=== PATIENT | female | born 1985 | race Caucasian/White ===

== ENCOUNTER → 2017-10-25 11:45 | Outpatient (CLI) | payer BC, SELFPAY | PROVIDERS: PCP Emergency Medicine; Visit Provider Internal Medicine Cardiovascular Disease | DX: G47.30 Sleep apnea, unspecified (principal); G47.10 Hypersomnia, unspecified; R06.83 Snoring | CPT/HCPCS: 95806 ==

== ENCOUNTER 2021-04-22 19:44 | Emergency (ER) | payer BC, SELFPAY ==
[2021-04-22 19:45] VITALS: BP 108/52; PULSE 71; RESP 18; TEMP 37.1; O2SAT 98; BMI 37.1
[2021-04-22 20:08] VITALS: BP 108/52; PULSE 71; RESP 18; TEMP 37.1; O2SAT 98
--- NOTE | 2021-04-22 20:21 | HMH.EDUTC ---
[facility] [place] Clinical Impression: Exposure to COVID-19 virus Disposition: Home, Self-Care Condition on Discharge: Good Instructions: DI for COVID-19 (Suspected or Confirmed ) Additional Instructions: covid swab was sent to lab, call tomorrow for results. self isolate until test results are known to be negative Referrals: Paige Persaud APRN [Primary Care Provider] - Time of Disposition: 20:25 Medical Decision Making - [place] Inquiry Pt receiving controlled substance: No Vital Signs: 04/22/21 19:45 04/22/21 20:08 Temperature 98.8 F 98.8 F Temperature Source Oral Pulse Rate 71 Pulse Rate [Right Brachial] 71 Respiratory Rate 18 18 Blood Pressure 108/52 L Blood Pressure [Right Arm] 108/52 L Blood Pressure Mean [Right Arm] 70 Blood Pressure Source [Right Arm] Automatic Cuff Blood Pressure Position [Right Arm] Sitting 02 Sat by Pulse Oximetry 98 Oxygen Delivery Method Room Air Orders (Tests/Meds): ORDERS Category Date Time Status Covid-19 Nasal PCR ([facility]) Routine Lab 04/22/21 19:50 Received [facility] [place] HPI - General Chief complaint: Urgent [facility] Stated complaint: covid test Time Seen by Provider: 04/22/21 20:22 Mode of Arrival: Ambulatory Source of Information: Patient Limitations: No Limitations Description of Symptoms (Recalled from Triage Doc. by RN): COVID TEST D/T EXPOSURE. C/O SORE THROAT AND HEADACHE SINCE YESTERDAY HEENT Symptoms (Recalled from RN notes): Yes Resp Symptoms (Recalled from RN notes): No Skin Symptoms (Recalled from RN notes): No MS Symptoms (Recalled from RN notes): No Functional Status (Recalled from RN notes): WNL - History of Present Illness Provider Complaint: 35 yr old female presnets for covid test. pt states she had a family member positive and work wanted her to have covid test. pt states se had a espinal and sore throat yesterday but it is gone today - Related Data Home Medications Medication Instructions Recorded Confirmed buprenorphine 8 mg-naloxone 2 mg 1 film SUBLINGUAL BID each 06/03/17 04/02/19 sublingual film Previous Rx's Medication Instructions Recorded metoprolol succinate 50 mg 50 mg PO DAILY #30 tab 09/11/17 tablet,extended release 24 hr Allergies Allergy/AdvReac Type Severity Reaction Status Date / Time No Known Allergies Allergy Verified 04/02/19 11:56 - Worker's Comp Is this a Worker's Comp case?: No [facility] History - Hepatitis A Screen Drug use history?: No High risk sexual behaviors?: No History of sexually transmitted infection?: No Currently employed?: No Childcare worker?: No Do you have indoor plumbing?: Yes Do you have electricity?: Yes Attestation statement:: This patient has been screened for Hepatitis A risk factors. I have reviewed the patient's past medical history: Yes Medical History: Reports:: Hypertension, Palpitations Denies:: Cancer, Diabetes Mellitus Type 1, Diabetes Mellitus Type 2, MRSA Other Surgeries: Yes: , Other Amputation: No Fractures: No - Social History Smoking Status: Current every day smoker Tobacco Type: cigarettes # Packs/Day (cigarettes): 1 Alcohol Intake: never Alcohol Intake Frequency:: other Substance Use Type: former substance user, heroin, opiates Occupational Status: employed Family Hx:: Coronary Artery Disease, Hypertension ROS Obtained: Yes Systems reviewed as appropriate & no additional complaints - Constitutional Constitutional: Reports system reviewed and no additional complaints, except as docu, Denies fever(s) - Eyes Eyes: Reports system reviewed and no additional complaints, except as docu, Denies dry eyes - ENT Ears, Nose, Mouth, and Throat: Reports system reviewed and no additional complaints, except as docu, Denies headache(s), Denies sore throat - Cardiovascular Cardiovascular: Reports system reviewed and no additional complaints, except as docu, Denies chest pain - Respiratory Respiratory: Reports system reviewe
== END 2021-04-22 20:27 | disposition home or self-care (01) ==
PROVIDERS: Emergency Provider Nurse Practitioner Family; PCP Nurse Practitioner Family
DX: R07.0 Pain in throat (principal); Z20.822 Contact with and (suspected) exposure to COVID-19
CPT/HCPCS: 99202; C9803; G0463; U0003; U0005

== ENCOUNTER → 2021-05-04 16:17 | Outpatient (CLI) | payer BC, SELFPAY ==
[2021-05-04 16:56] LABS: Basophils % 0.3 % (0.1-2.0); Eosinophils # 0.1 K/mm3 (0.0-0.4); Eosinophils % 1.4 % (0.1-12.0); Hematocrit 43.7 % (37.0-47.0); Hemoglobin 15.1 g/dL (12.2-16.2); Lymphocytes # 2.2 K/mm3 (0.7-4.5); Lymphocytes % 28.6 % (10-50); Mean Corpuscular HGB Conc 34.4 g/dL (31.8-35.4); Mean Corpuscular Hemoglobin 30.9 pg (27.0-31.2); Mean Corpuscular Volume 89.8 fl (81-99); Mean Platelet Volume 8.1 fl (7.4-10.4); Monocytes # 0.3 K/mm3 (0.1-1.0); Monocytes % 4.2 % (1.7-9.3); Neutrophils % 65.5 % (37.0-80.0); Platelet Count 284 K/mm3 (142-424); Red Blood Count 4.87 M/mm3 (4.20-5.40); Red Cell Distribution Width 11.9 % (11.5-17.5); White Blood Count 7.7 K/mm3 (4.8-10.8)
[2021-05-04 17:28] LABS: Alanine Aminotransferase 23 U/L (12-78); Albumin Level 4.6 g/dl (3.5-5.0); Albumin/Globulin Ratio 1.8 (1.1-1.8); Alkaline Phosphatase 71 U/L (38-126); Anion Gap 12.9 mEq/L (5-15); Aspartate Amino Transferase 35 U/L (14-36); Bilirubin,Total 0.7 mg/dl (0.2-1.3); Blood Urea Nitrogen 12 mg/dl (7-17); Calcium 8.9 mg/dl (8.4-10.2); Carbon Dioxide 24 mmol/L (22.0-30.0); Chloride 106 mmol/L (98-107); Estimated Glomerular Filt Rate 112 ml/min (>60); GFR (African American) 135 ML/MIN (>60); Globulin 2.5 g/dL (1.3-3.2); Glucose 103 mg/dl (74-100); Potassium 3.9 mmoL/L (3.5-5.1); Sodium 139 mmol/L (136-145); Total Protein,Serum 7.1 g/dl (6.3-8.2)
== END ==
PROVIDERS: Visit Provider Nurse Practitioner Family
DX: R23.3 Spontaneous ecchymoses (principal)
CPT/HCPCS: 36415; 80053; 85025

== ENCOUNTER → 2021-05-17 10:41 | Outpatient (CLI) | payer BC, SELFPAY ==
[2021-05-17 11:01] LABS: Urine Pregnancy, HCG Qual. Negative (Negative)
== END ==
PROVIDERS: Visit Provider Surgery
DX: Z01.812 Encounter for preprocedural laboratory examination (principal); Z11.52 Encounter for screening for COVID-19; L72.9 Follicular cyst of the skin and subcutaneous tissue, unspecified
CPT/HCPCS: 81025; C9803; U0003; U0005

== ENCOUNTER 2021-05-18 08:32 | Day surgery (SDC) | payer BC, SELFPAY ==
[2021-05-18 08:46] VITALS: BP 121/76; PULSE 88; RESP 18; TEMP 37; O2SAT 100; BMI 37.1
--- NOTE | 2021-05-18 09:34 | P.PN_ITS ---
[facility] Anesthesia Checklist - Patient Identification Patient Identification: Arm Band, Verbal (Name & ) - Structural Data Admitted From: Home Planned Operative Procedure/s: Excision of posterior scalp lesion Consent for Planned Operative Procedure(s) Verified: Yes Verified Documents: Surgical Consent - NPO Status Verified Time NPO: 20:00 - Additional verifications Anesthesia Reactions: No Hx Blood Transfusions: No Blood Transfusion Reaction: No - Anesthesia Plan Anesthesia Risk discussed: Yes ASA Class: II Anesthesia Type: MAC [facility] History I have reviewed the patient's past medical history: Yes Medical History: Reports:: Hypertension, Palpitations Denies:: Cancer, Diabetes Mellitus Type 1, Diabetes Mellitus Type 2, Internal Pacemaker, MRSA, Seizures *Have you ever received a pneumonia vaccine?: No *Have you received a flu vaccine this season?: Yes Other Medical History: Denies: Blood Transfusion Reaction Anesthesia experience/problems:: none Other Surgeries: Yes: , Other. No: Pacemaker Amputation: No Fractures: No - *Social History Last grade of school completed: Advanced degree Smoking Status: Current every day smoker Tobacco Type: cigarettes # Packs/Day (cigarettes): 1 Alcohol Intake: never Alcohol Intake Frequency:: other Substance Use Type: sedatives Last Used Substance: unknown *Occupational Status:: employed Housing: house *Travel in the last 8 weeks: None Family Hx:: Hypertension
--- NOTE | 2021-05-18 09:37 | HMH.OPNOTE ---
Date of procedure: 05/18/21 Pre-op Diagnosis:: 1.5 cm posterior scalp cyst Post-op Diagnosis:: Same Procedure performed:: Excision of 1.5 cm posterior scalp cyst Surgeon:: Kevin Velazco MD Anesthesia: LMA Estimated blood loss (mL): 10 Operative findings:: Cyst capsule excised Operative note:: After informed consent was obtained the patient was taken to the operating room and placed in the supine position. General anesthesia with laryngeal mask airway was achieved. She was transferred to the right lateral decubitus position. Her posterior scalp was prepped and draped in a sterile fashion. After infiltration local anesthetic an incision overlying the cyst was made. The deep subcutaneous tissue was dissected with electrocautery. The cyst cavity was carefully elevated and excised with a combination of blunt dissection and electrocautery. Electrocautery was then utilized to achieve hemostasis after the cyst was excised in toto. The small linear wound was packed open with dry gauze and a pressure dressing was applied. The patient was then transferred to recovery in stable condition. Condition: stable Disposition: PACU Specimens:: Scalp cyst Complications:: No immediate
[2021-05-18 09:45] VITALS: BP 107/46; PULSE 88; RESP 16; TEMP 36.8; O2SAT 98
[2021-05-18 10:00] VITALS: BP 103/68; PULSE 70; RESP 16; O2SAT 99
[2021-05-18 10:15] VITALS: BP 110/62; PULSE 67; RESP 16; O2SAT 99
== END 2021-05-18 10:15 | disposition home or self-care (01) ==
LOC: OR 08:33
PROVIDERS: PCP Nurse Practitioner Family; Visit Provider Surgery
PROC: (CPT 11422; principal; 2021-05-18 10:00)
DX: L72.12 Trichodermal cyst (principal); I10 Essential (primary) hypertension; R00.2 Palpitations; Z87.891 Personal history of nicotine dependence; Z82.49 Family history of ischemic heart disease and other diseases of the circulatory system
CPT/HCPCS: 11422; 96374; J2405

== ENCOUNTER → 2022-02-19 13:31 | Outpatient (CLI) | payer BC, SELFPAY ==
--- NOTE | 2022-02-19 13:34 | CA_ITS ---
FINAL REPORT TECHNIQUE: Color Doppler, duplex Doppler and compression sonography of the left lower extremity deep venous systems was performed. CLINICAL HISTORY: .lt anterior cooper tenderness, 8 weeks , varicosities, [employer] worker. FINDINGS: There is no evidence of deep venous thrombosis from the level of the groin to the calf. The veins are patent and compressible. IMPRESSION: No evidence of deep venous thrombosis left lower extremity. Reviewed, Interpreted and Dictated by Wale Rios III, MD Transcribed by Ke Stearns Authenticated and . [facility]
== END ==
PROVIDERS: PCP Nurse Practitioner Family; Visit Provider Nurse Practitioner Family
DX: R22.42 Localized swelling, mass and lump, left lower limb (principal)
CPT/HCPCS: 93971

== ENCOUNTER → 2022-02-26 15:32 | Outpatient (CLI) | payer BC, SELFPAY ==
[2022-02-26 16:31] LABS: Basophils % 0.5 % (0.1-2.0); Eosinophils # 0.1 K/mm3 (0.0-0.4); Eosinophils % 1.9 % (0.1-12.0); Hematocrit 37.5 % (37.0-47.0); Lymphocytes # 1.3 K/mm3 (0.7-4.5); Lymphocytes % 24.1 % (10-50); Mean Corpuscular HGB Conc 34.6 g/dL (31.8-35.4); Mean Corpuscular Hemoglobin 31.1 pg (27.0-31.2); Mean Corpuscular Volume 89.8 fl (81-99); Monocytes # 0.3 K/mm3 (0.1-1.0); Monocytes % 5.7 % (1.7-9.3); Neutrophils # 3.5 K/mm3 (1.8-7.8); Neutrophils % 67.8 % (37.0-80.0); Platelet Count 211 K/mm3 (142-424); Red Blood Count 4.18 M/mm3 (4.20-5.40); Red Cell Distribution Width 12.4 % (11.5-17.5); White Blood Count 5.2 K/mm3 (4.8-10.8)
[2022-02-28 12:38] LABS: Rapid Plasma Reagin Ab Titer Non Reactive (NonRea<1:1)
[2022-03-10 23:24] LABS: HIV Screen 4th Generation wRfx NON REACTIVE; Hepatitis B Surface Antigen NON REACTIVE; Hepatitis C Antibody <0.1; Rubella Antibodies, IgG 1.2
== END ==
PROVIDERS: PCP Nurse Practitioner Family; Visit Provider Nurse Practitioner Obstetrics & Gynecology
DX: Z34.90 Encounter for supervision of normal pregnancy, unspecified, unspecified trimester (principal)
CPT/HCPCS: 36415; 85025; 86592; 86703; 86762; 86850; 87340; 87380; G0432

== ENCOUNTER → 2022-03-12 09:49 | Outpatient (CLI) | payer BC, SELFPAY ==
--- NOTE | 2022-03-12 09:49 | US_ITS ---
FINAL REPORT CLINICAL HISTORY: for dates, patient did not know her lmp FINDINGS: Sonographic images of the pelvis were obtained. There is a gestational sac in the uterus. The crown-rump length measures 68 mm corresponding to 13 week 1 day gestation. Heart rate is detected at 160 beats per minute. There is a 3.7 cm probable corpus luteum cyst in the right ovary. IMPRESSION: Single intrauterine with 13 week 1 day gestation. Reviewed, Interpreted and Dictated by Wale Rios III, MD Transcribed by Lien Mallory Authenticated and . [facility]
== END ==
PROVIDERS: PCP Nurse Practitioner Family; Visit Provider Nurse Practitioner Obstetrics & Gynecology
DX: Z34.90 Encounter for supervision of normal pregnancy, unspecified, unspecified trimester (principal)
CPT/HCPCS: 76801

== ENCOUNTER → 2022-04-30 12:48 | Outpatient (CLI) | payer BC, SELFPAY ==
--- NOTE | 2022-04-30 12:49 | US_ITS ---
FINAL REPORT CLINICAL HISTORY: 20 week anatomy scan FINDINGS: There is a single live intrauterine gestation. Presentation is cephalic. The cervix is closed and measures 2.8 cm. Placenta is posterior, grade 1. The placenta slightly less than 2 cm from the internal os consistent with a low lying placenta. movement is noted. Cardiac activity is measured at 147 beats per minute. No gross anatomic anomaly is identified. AMNIOTIC FLUID: Appropriate amount. MEASUREMENTS: ULTRASOUND AGE: 19 weeks 6 days. GESTATION AGE: 20 weeks 2 days. ESTIMATED WEIGHT: 313 g GROWTH PERCENTILE: 21% LMP percentile BPD: 4.6 cm correspond with 20 weeks 0 days. OFD: 6.1 cm corresponding with 20 weeks 5 days. HC: 16.9 cm corresponding with 19 weeks 5 days. AC: 14.8 cm corresponding to 20 weeks 1 days. FL: 3.1 cm corresponding with 19 weeks 4 days. CEREBELLUM: 1.9 cm corresponding to 20 weeks 0 days. HUMERUS: 3.0 cm corresponding with 20 weeks 0 days. HC/AC: 1.15 CI: 76% FL/BPD: 67% FL/AC: 21% IMPRESSION: Single living IUP with an ultrasound age of 19 weeks 6 days. No gross anatomic anomalies noted. Findings are consistent with a low lying placenta, attention should be paid during follow-up. Reviewed, Interpreted and Dictated by Marjorie Gasca MD Transcribed by Silvana Ledezma Authenticated and . [facility]
== END ==
PROVIDERS: PCP Nurse Practitioner Family; Visit Provider Nurse Practitioner Obstetrics & Gynecology
DX: Z34.90 Encounter for supervision of normal pregnancy, unspecified, unspecified trimester (principal); Z3A.20 20 weeks gestation of pregnancy
CPT/HCPCS: 76811

== ENCOUNTER 2022-06-21 12:40 | Outpatient (CLI) | payer BC, SELFPAY ==
[2022-06-21 13:30] LABS: Basophils % 0.2 % (0.1-2.0); Eosinophils # 0.1 K/mm3 (0.0-0.4); Eosinophils % 1.5 % (0.1-12.0); Hematocrit 39.4 % (37.0-47.0); Hemoglobin 12.6 g/dL (12.2-16.2); Lymphocytes # 1.6 K/mm3 (0.7-4.5); Lymphocytes % 19.8 % (10-50); Mean Corpuscular HGB Conc 31.9 g/dL (31.8-35.4); Mean Corpuscular Hemoglobin 29.6 pg (27.0-31.2); Mean Corpuscular Volume 92.7 fl (81-99); Mean Platelet Volume 7.5 fl (7.4-10.4); Monocytes # 0.3 K/mm3 (0.1-1.0); Monocytes % 4.2 % (1.7-9.3); Neutrophils # 5.8 K/mm3 (1.8-7.8); Neutrophils % 74.3 % (37.0-80.0); Platelet Count 218 K/mm3 (142-424); Red Blood Count 4.25 M/mm3 (4.20-5.40); Red Cell Distribution Width 13.7 % (11.5-17.5); White Blood Count 7.8 K/mm3 (4.8-10.8)
[2022-06-21 14:40] LABS: Glucose,Fasting 86 mg/dl (74-100)
[2022-06-21 14:45] VITALS: BP 127/83; PULSE 92; RESP 18; O2SAT 98
[2022-06-21 15:58] LABS: Glucose 1 Hour 90 mg/dL (74-100)
== END 2022-06-21 15:00 | disposition home or self-care (01) ==
PROVIDERS: PCP Nurse Practitioner Family; Visit Provider Nurse Practitioner Obstetrics & Gynecology
DX: Z34.90 Encounter for supervision of normal pregnancy, unspecified, unspecified trimester (principal)
CPT/HCPCS: 36415; 82951; 85025; 96372; J2790

== ENCOUNTER → 2022-06-28 12:42 | Outpatient (CLI) | payer BC, SELFPAY ==
--- NOTE | 2022-06-28 12:42 | US_ITS ---
FINAL REPORT CLINICAL HISTORY: low lying placenta FINDINGS: There is a single live intrauterine gestation. Presentation is cephalic. The cervix is closed and measures 3.7 cm in length. Placenta is posterior, grade 1. movement is noted. heart rate is 142 beats per minute. Three-vessel cord with satisfactory umbilical cord insertion. Four-chamber heart is noted. brain and ventricles are unremarkable. Chest and diaphragm are unremarkable. ABDOMEN: Both kidneys are unremarkable. Stomach is unremarkable. SPINE: No anomalies identified. Both arms and legs noted. AMNIOTIC FLUID: Appropriate amount. MEASUREMENTS: ULTRASOUND AGE: 28 weeks 4 days. GESTATION AGE: 28 weeks 5 days. ESTIMATED WEIGHT: 1207 g GROWTH PERCENTILE: 24 BPD: 7.11 consistent with 28 weeks 4 days. OFD: 9.42 cm consistent with 28 weeks 6 days. HC: 26.2 cm consistent with 28 weeks 4 days. AC: 24 0.05 cm corresponding to 28 weeks 3 days. FL: 5.30 cm corresponding to 28 weeks 2 days. HC/AC: 1.09 CI: 75 % FL/BPD: 75% FL/AC: 22% IMPRESSION: Single living IUP with an ultrasound age of 28 weeks 4 days. No anomalies noted. Reviewed, Interpreted and Dictated by Wale Rios III, MD Transcribed by Cande Gaytan Authenticated and [facility][1]
== END ==
PROVIDERS: PCP Nurse Practitioner Family; Visit Provider Obstetrics & Gynecology
DX: O44.40 Low lying placenta NOS or without hemorrhage, unspecified trimester (principal); Z3A.28 28 weeks gestation of pregnancy
CPT/HCPCS: 76816

== ENCOUNTER → 2022-08-23 16:35 | Outpatient (CLI) | payer BC, SELFPAY | PROVIDERS: PCP Nurse Practitioner Family; Visit Provider Nurse Practitioner Obstetrics & Gynecology | DX: Z34.93 Encounter for supervision of normal pregnancy, unspecified, third trimester (principal); Z3A.36 36 weeks gestation of pregnancy | CPT/HCPCS: 86403 ==

== ENCOUNTER → 2022-08-28 11:56 | Outpatient (CLI) | payer BC, SELFPAY ==
[2022-08-28 12:44] LABS: Basophils % 0.1 % (0.1-2.0); Eosinophils # 0.1 K/mm3 (0.0-0.4); Eosinophils % 0.6 % (0.1-12.0); Hematocrit 39.8 % (37.0-47.0); Hemoglobin 13.3 g/dL (12.2-16.2); Lymphocytes # 1.3 K/mm3 (0.7-4.5); Lymphocytes % 16.7 % (10-50); Mean Corpuscular HGB Conc 33.5 g/dL (31.8-35.4); Mean Corpuscular Hemoglobin 30.6 pg (27.0-31.2); Mean Corpuscular Volume 91.5 fl (81-99); Mean Platelet Volume 8.9 fl (7.4-10.4); Monocytes # 0.3 K/mm3 (0.1-1.0); Monocytes % 3.9 % (1.7-9.3); Neutrophils % 78.7 % (37.0-80.0); Platelet Count 197 K/mm3 (142-424); Red Blood Count 4.35 M/mm3 (4.20-5.40); Red Cell Distribution Width 13.4 % (11.5-17.5); White Blood Count 7.6 K/mm3 (4.8-10.8)
[2022-08-28 12:56] LABS: D-Dimer 1.28 ug/mL (0.0-0.5)
[2022-08-28 13:03] LABS: Activated Partial Thrombo Time 26.8 seconds (22.8-30.6); Fibrinogen 464 mg/dL (229.9-363.5); INR 0.89 (0.9-1.1); Prothrombin Time 9.7 seconds (10.1-12.5)
[2022-08-28 13:10] LABS: Alanine Aminotransferase 18 U/L (12-78); Anion Gap 14.1 mEq/L (5-15); Aspartate Amino Transferase 25 U/L (14-36); Blood Urea Nitrogen 5 mg/dl (7-17); Calcium 8.4 mg/dl (8.4-10.2); Carbon Dioxide 22 mmol/L (22.0-30.0); Chloride 105 mmol/L (98-107); Estimated Glomerular Filt Rate 178 ml/min (>60); GFR (African American) 215 ML/MIN (>60); Glucose 88 mg/dl (74-100); Potassium 4.1 mmoL/L (3.5-5.1); Sodium 137 mmol/L (136-145); Uric Acid 3.7 mg/dl (2.5-6.2)
[2022-08-28 15:10] LABS: Collection Time,Urine 22 hours
[2022-08-28 15:11] LABS: Total Volume,Urine 1750 mL (600-1600)
[2022-08-28 15:17] LABS: Patient Weight,Urine 250 lbs
[2022-08-28 16:25] LABS: Creatinine 24 Hour,Urine 1295 mg/24hr (630-2500); Creatinine,Urine Random 74 mg/dL (Not Estab.); Total Protein 24 Hour,Urine 245 mg/24 hr (40-90)
== END ==
PROVIDERS: PCP Nurse Practitioner Family; Visit Provider Nurse Practitioner Obstetrics & Gynecology
DX: I10 Essential (primary) hypertension (principal)
CPT/HCPCS: 80048; 82575; 84155; 84450; 84460; 84550; 85025; 85378; 85384; 85610; 85730

== ENCOUNTER 2022-09-10 05:03 | Inpatient (IN) | payer BC, SELFPAY ==
[2022-09-10] VITALS (9 sets, daily range): BP systolic 118–137; BP diastolic 77–88; PULSE 82–91; RESP 12–18; TEMP 36.2–37.3; O2SAT 96–98; BMI 40.0
[2022-09-10 06:57] LABS: Coronavirus 19, PCR Not Detected (NotDetected); Influenza A, PCR Not Detected (NotDetected); Influenza B, PCR Not Detected (NotDetected)
--- NOTE | 2022-09-10 07:05 | P.PN_ITS ---
[facility] Disclaimer: The information contained in this section may have been updated after the patient was seen, as this information can be updated by other users. 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, antepartum Surgical History History of section Hx of cholecystectomy Social History Smoking Status: Former smoker alcohol intake: never substance use type: former substance user and sedatives current occupational status: employed Travel in the last 8 weeks: None housing: house current occupation: [employer] current occupational exposures/hazards: Yes caffeine: Yes [facility] Anesthesia Checklist Patient Identification Patient Identification: Arm Band and Verbal (Name & ) Structural Data Admitted From: Inpatient Planned Operative Procedure/s: C/S Consent for Planned Operative Procedure(s) Verified: Yes NPO Status Verified Time NPO: 00:00 Chart Verification Results Verified: CBC and BMP Additional verifications Patient : Yes Anesthesia Reactions: No Hx Blood Transfusions: No Blood Transfusion Reaction: No Airway Assessment C-Spine Mobility Assessed: Yes TMJ Mobility Assessed: Yes Dentition: Good Dentition Neurological Assessment Level of Consciousness: Awake Hx Seizures: No Numbness or tingling in extremities: Yes Anesthesia Plan Anesthesia Risk discussed: Yes Anesthesia Plan: Verified ASA Class: III Anesthesia Type: Spinal
[2022-09-10 07:18] LABS: Chloride 107 mmol/L (98-107); Sodium 136 mmol/L (136-145)
[2022-09-10 07:19] LABS: Potassium 4.6 mmoL/L (3.5-5.1)
[2022-09-10 07:21] LABS: Alanine Aminotransferase 20 U/L (12-78); Albumin Level 3.5 g/dl (3.5-5.0); Alkaline Phosphatase 91 U/L (38-126); Aspartate Amino Transferase 58 U/L (14-36); Bilirubin,Total 1.3 mg/dl (0.2-1.3); Blood Urea Nitrogen 9 mg/dl (7-17); Creatinine Clearance Estimated 335 mL/min (50-200); Estimated Glomerular Filt Rate 178 ml/min (>60); GFR (African American) 215 ML/MIN (>60)
[2022-09-10 07:22] LABS: Albumin/Globulin Ratio 1.3 (1.1-1.8); Anion Gap 13.6 mEq/L (5-15); Calcium 8.1 mg/dl (8.4-10.2); Carbon Dioxide 20 mmol/L (22.0-30.0); Globulin 2.8 g/dL (1.3-3.2); Glucose 85 mg/dl (74-100); Total Protein,Serum 6.3 g/dl (6.3-8.2)
--- NOTE | 2022-09-10 07:38 | HMH.PHAINT1 ---
Pharmacy Intervention Comments: MEDICATION RECONCILIATION COMPLETED ON PATIENT USING EXTERNAL FILL HISTORY FROM PHARMACY AND NOHEMI REPORT. -LON BRENNAN, AYOD
[2022-09-10 08:16] LABS: Cord Blood PH 7.29 (7.35-7.45)
--- NOTE | 2022-09-10 09:08 | EXP.ANES.I ---
[facility] Anesthesia Record Part I Anesthesia Record I Intake, IV Amount: 1,000 Estimated blood loss (mL): 600 Urine output (mL): 200 Blood Pressure: 134/83 SaO2: 98 Pulse Rate: 84 Respiratory Rate: 13 Temperature: 97.1 F Patient is:: Awake Stable to PACU at:: 09:10
[2022-09-10 09:24] LABS: Basophils % 0.1 % (0.1-2.0); Eosinophils # 0.1 K/mm3 (0.0-0.4); Eosinophils % 1.2 % (0.1-12.0); Hematocrit 40.8 % (37.0-47.0); Hemoglobin 13.2 g/dL (12.2-16.2); Lymphocytes # 1.3 K/mm3 (0.7-4.5); Mean Corpuscular HGB Conc 32.4 g/dL (31.8-35.4); Mean Corpuscular Hemoglobin 29.9 pg (27.0-31.2); Mean Corpuscular Volume 92.2 fl (81-99); Monocytes # 0.3 K/mm3 (0.1-1.0); Monocytes % 2.9 % (1.7-9.3); Neutrophils # 7.6 K/mm3 (1.8-7.8); Neutrophils % 81.9 % (37.0-80.0); Platelet Count 194 K/mm3 (142-424); Red Blood Count 4.43 M/mm3 (4.20-5.40); Red Cell Distribution Width 13.3 % (11.5-17.5); White Blood Count 9.3 K/mm3 (4.8-10.8)
--- NOTE | 2022-09-10 13:23 | EXP.OP.NOTE ---
Date of procedure: 09/10/22 Pre-op Diagnosis:: Term , previous section, desire for sterilization Post-op Diagnosis:: Term , previous section, desire for sterilization, uterine atony. Procedure performed:: Repeat lower segment transverse section and bilateral salpingectomy Surgeon:: Jamir Yoder MD Singeing Torch Operator(s):: Dr. Hu FACTORY LAY OUT ENGINEER:: Kaleigh Moran Anesthesia: spinal Estimated blood loss (mL): 600 Clinical Note:: She is a 37-year-old 2 para 1 at 39 weeks gestational age. She has had a previous section as result of that was offered repeat lower segment transverse section at term. She also requested a bilateral salpingectomy. Operative findings:: She delivered a liveborn male child at 8:10 AM on the morning of September 10, 2022. The baby had Apgars of 9 at 1 minute and 9 at 5 minutes. pH was 7.29. Ovaries and tubes appeared normal. She did have a somewhat boggy uterus and we elected to perform a B-escalera suture. Operative note:: She was taken to the operating room where spinal anesthesia was found be adequate. She was prepped and draped in normal sterile fashion in the supine position with a leftward tilt. A Mcdowell catheter was in the bladder. A Pfannenstiel skin incision was made with knife then carried through to the underlying layer of fascia with cautery. The fascia was opened in the midline with cautery and extended laterally using Byrd scissors. Sang clamps were applied to the superior aspect of the fascial incision which was tented up and the underlying rectus muscles dissected off using cautery. The [place] clamps were then applied to the inferior aspect of the fascial incision which in a similar fashion was tented up and the underlying rectus muscles dissected off using cautery. The rectus muscles were then in the midline, the peritoneum identified, and entered sharply with Metzenbaum scissors. This incision was then extended superiorly and inferiorly with cautery. We had good visualization of the bladder inferiorly. The bladder peritoneum was then opened in the midline and extended laterally using Metzenbaum scissors. A bladder flap was created digitally. An Santiago retractor was placed within the uterine cavity. Transverse incision was made through the uterine muscle to the amnion. This incision was then extended laterally using fingers traction. The amnion was entered sharply with knife. There was clear amniotic fluid. The infant's head was then delivered atraumatically. This was followed by the anterior shoulder and the rest of the infant's body atraumatically. The oropharynx and nasopharynx were bulb suctioned. The infant was vigorous. The infant was then handed off to Dr. Caballero who assigned Apgars of 9 at 1 minute and 9 at 5 minutes. We then obtained cord blood as well as cord pH. The pH was 7.29. Using gentle traction on the cord and countertraction on the fundus I was able to easily deliver the placenta intact. It had a normal three-vessel cord. The uterus was then cleared of clots and debris . The uterine incision was then closed using running 0 Vicryl suture in a locked fashion. A second layer of the same suture was used to imbricate the first layer. T The gutters and cul-de-sac were then cleared of clots and debris . There was a small amount of bleeding on the left side and I elected to place interrupted 2-0 Vicryl suture here. Once again hemostasis was assured. I placed a large piece of Gelfoam along the uterine incision. We then performed a bilateral salpingectomy. The distal end of the tube was grasped with my fingers and using the endoseal I cut through the mesosalpinx. I then cut across the tube close to the cornua. This was similarly performed on the left side. I was not able to get down to the fimbriated end on the left side since there were some adhesions. I cut across the tube just beyond the fimbriated end. Tubes were sent to pathology. After o
--- NOTE | 2022-09-10 13:32 | EXP.HP ---
History of Present Illness *Admission Date: 09/10/22 *Reason for visit:: Term , desire for sterilization, previous section *History of present illness: She is a 37-year-old 2 para 1 who is 39 weeks gestational age. She has had a previous section as result of that was offered repeat lower segment transverse section at term. She also expressed a desire for sterilization. She has increased blood pressure and takes labetalol 400 mg twice daily. She has advanced maternal age. She takes Subutex for previous drug abuse. [facility] Disclaimer: The information contained in this section may have been updated after the patient was seen, as this information can be updated by other users. 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, antepartum Surgical History History of section Hx of cholecystectomy Social History Smoking Status: Former smoker alcohol intake: never substance use type: former substance user and sedatives current occupational status: employed Travel in the last 8 weeks: None housing: house current occupation: [employer] current occupational exposures/hazards: Yes caffeine: Yes Review of Systems Review of Systems Review of systems:: pertinent systems reviewed and negative unless documented below Meds Home Medications and Allergies Home Medications Medication Instructions Recorded Confirmed Type ferrous sulfate 325 mg (65 mg 325 mg PO DAILY Supplement 06/21/22 09/10/22 History iron) tablet,delayed release labetalol 200 mg tablet 400 mg PO BID Hypertension 09/10/22 09/10/22 History New Prescriptions to Start Prescriptions: Allergies Allergy/AdvReac Type Severity Reaction Status Date / Time No Known Allergies Allergy Verified 09/06/22 13:17 Exam Data for Last 24 hours Vital signs and Labs for Last 24 Hours: Temp Pulse Resp BP Pulse Ox 97.1 F L 82 16 134/82 98 09/10/22 09:40 09/10/22 09:40 09/10/22 11:00 09/10/22 09:40 09/10/22 09:40 Laboratory Results - last 24 hr 09/10/22 06:00: Sodium 136, Potassium 4.6, Chloride 107, Carbon Dioxide 20 L, Anion Gap 13.6, BUN 9, Creatinine 0.40 L, Estimated Creat Clear 335 H, Estimated GFR 178, Est GFR ( Amer) 215, Glucose 85, Calcium 8.1 L, Total Bilirubin 1.3, AST 58 H, ALT 20, Alkaline Phosphatase 91, Total Protein 6.3, Albumin 3.5, Globulin 2.8, Albumin/Globulin Ratio 1.3 09/10/22 06:00: SARS-CoV-2 (PCR) Not detected, Influenza A Untype (PCR) Not detected, Influenza Type B (PCR) Not detected 09/10/22 06:00: Blood Type O Negative, Antibody Screen Positive 09/10/22 08:14: Cord ABG pH 7.29 L 09/10/22 09:16: WBC 9.3, RBC 4.43, Hgb 13.2, Hct 40.8, MCV 92.2, MCH 29.9, MCHC 32.4, RDW 13.3, Plt Count 194, MPV 9.0, Neut % (Auto) 81.9 H, Lymph % (Auto) 14.0, [place] % (Auto) 2.9, Eos % (Auto) 1.2, Baso % (Auto) 0.1, Neut # (Auto) 7.6, Lymph # (Auto) 1.3, [place] # (Auto) 0.3, Eos # (Auto) 0.1, Baso # (Auto) 0.0 I & O for Last 24 hours: Intake & Output 09/08/22 09/09/22 09/10/22 09/11/22 11:59 11:59 11:59 11:59 Intake Total 1000 / 1000 Balance 1000 / 1000 Weight 248 lb Constitutional Constitutional: no acute distress *Routine HEENT Exam Head: Present normocephalic Eye: Present EOMI and PERRL ENT: Present mucous membranes moist *Routine Neck Exam Neck: Present supple; Absent lymphadenopathy *Routine Respiratory Exam Respiratory: Present CTA bilaterally *Routine Cardiovascular Exam Cardiovascular: Present RRR *Routine Abdominal Exam Abdominal: Present soft and normoactive bowel sounds; Absent tenderness *Routine Rectal Exam Rectal:: deferred *Routine Genitalia Exam Genitalia:: deferred *Routine Extremities Exam Extremities: Absent cyanosis, clubbing or edema *Routine
[2022-09-10 15:26] LABS: Microscopic, Urine URINE MICROSCOPIC (MICROSCOPIC)
--- NOTE | 2022-09-10 15:36 | SUR.OPER ---
0810- TOB of viable male . Apgars 9/9. PH-7.29
[2022-09-10 20:49] LABS: Barbiturates Screen,Urine Negative ng/ml (<200)
[2022-09-10 20:50] LABS: Amphetamine/Metha Screen,Urine Negative ng/ml (<1000); Benzodiazepines Screen,Urine Negative ng/ml (<200)
[2022-09-10 20:51] LABS: Cocaine Screen,Urine Negative ng/ml (<300)
[2022-09-10 20:52] LABS: Appearance,Urine CLEAR (Clear); Bilirubin,Urine Negative (Negative); Blood, Urine Negative (Negative); Color,Urine YELLOW (Yellow); Glucose,Urine (UA) Negative (Negative); Ketones,Urine TRACE (Negative); Leukocyte Esterase,Urine Negative (Negative); Nitrate,Urine Negative (Negative); PH,Urine 8.5 (5.0-8.5); Protein,Urine Negative (Negative); Specific Gravity, Urine 1.015 (1.005-1.030)
[2022-09-10 20:53] LABS: Phencyclidine Screen,Urine Negative ng/ml (<25)
[2022-09-10 20:54] LABS: Opiate Screen,Urine Negative ng/ml (<300)
[2022-09-10 20:55] LABS: Amorphous Sediment,Urine 1+ /lpf; Squamous Epithelial Cell,Urine Occasional #/hpf (0-5)
[2022-09-10 21:30] LABS: Cannabinoid Screen,Urine Negative ng/ml (<50); Methadone Screen,Urine Negative ng/ml (<300)
[2022-09-11 06:43] LABS: Hematocrit 36.9 % (37.0-47.0); Hemoglobin 12.3 g/dL (12.2-16.2)
--- NOTE | 2022-09-11 09:57 | SW/DCPLANNER ---
Addendum entered by Xiao Lynch 09/14/22 07:42: Infant cord screen positive for buprenorphine: no further action at this time. Original Note: I received a consult on this patient regarding: suboxone use. Patient and infant urine drug screen collected on 09/10/2022 were both negative. Patient delivered male (Karel Hernandez) on 09/10/2022. Infant's father (Titi Hernandez 12/05/79) was present at the time of my visit. Patient, Titi, infant and other child (Christy Hernandez) will reside at [address] [place] [address] in [place] [address]. Patient's contact number is [phone]. Patient stated that she has not been involved with any past Social Service. Patient is going to reach out to [facility] and see if she is a candidate. Patient stated that she has the following items at home: crib, carseat, clothing, diapers and will be bottle feeding. Patient does have transportation for all follow up appointments. PEDS MD will be Dr Caballero. Patient stated that she was recently enrolled at [facility] in [place] for Suboxone but as of May her insurance quit covering. Patient stated that since insurance quit covering she has been weaning herself off medication. Patient stated that she is doing well with this and has not had any drug use in 8 years. OB Nursing staff (Alexandra/ Christine) stated that patient is appropriate with infant. Patient has no further questions/needs at this time. Patient is expected to discharge home tomorrow 09/11/2022 pending no setbacks.
--- NOTE | 2022-09-11 14:50 | EXP.ACUTE.PN ---
Subjective *Date: 09/11/22 *Time: 08:15 Interval history: She is doing well this morning. She is postop day 1 from a repeat section and bilateral salpingectomy. She is eating and drinking and ambulating. She is not taking Suboxone and apparently has not taken it for the last 3 months. Her pain is well controlled. Medical Exam Vital signs and Labs for Last 24 Hours: Vital Signs Temp Pulse Resp BP 09/10/22 16:52 98.0 F 91 H 17 118/77 09/10/22 15:33 16 Laboratory Results - last 24 hr 09/10/22 06:00: Antibody Identification Anti-D 09/10/22 07:45: Urine Color Yellow, Urine Appearance Clear, Urine pH 8.5, Ur Specific [place] 1.015, Urine Protein Negative, Urine Glucose (UA) Negative, Urine Ketones Trace, Urine Blood Negative, Urine Nitrate Negative, Urine Bilirubin Negative, Urine Urobilinogen 1.0, Ur Leukocyte Esterase Negative, Urine RBC None, Urine WBC None, Ur Squamous Epith Cells Occasional, Amorphous Sediment 1+, Urine Bacteria None 09/10/22 07:45: Urine Opiates Screen Negative, Urine Methadone Screen Negative, Ur Barbituates Screen Negative, Ur Phencyclidine Scrn Negative, Ur Amphetamines Screen Negative, U Benzodiazepines Scrn Negative, Urine Cocaine Screen Negative, U Marijuana (THC) Screen Negative 09/11/22 06:21: Hgb 12.3, Hct 36.9 L I & O for Labs for Last 24 Hours: Intake & Output 09/09/22 09/10/22 09/11/22 09/12/22 11:59 11:59 11:59 11:59 Intake Total 1000 / 1000 Output Total 400 / 400 900 / 900 Balance 600 / 600 -900 / -900 Weight 248 lb Head: Present atraumatic Neck: Present normal inspection Respiratory: Present normal respiratory effort; Absent accessory muscle use Assessment and Plan *Assessment and plan (1) Advanced maternal age in multigravida: Status: Acute Category: Medical Code(s): O09.529 - Supervision of elderly multigravida, unspecified trimester (2) Sterilization: Status: Acute Category: Medical Code(s): Z30.2 - Encounter for sterilization (3) Hypertensive disorder: Status: Acute Qualifiers: Hypertension type: essential hypertension Qualified Code(s): I10 - Essential (primary) hypertension Category: Medical Code(s): I10 - Essential (primary) hypertension (4) History of section: Status: Acute Category: Surgical Code(s): Z98.891 - History of uterine scar from previous surgery (5) delivery delivered: Status: Acute Category: Medical Code(s): O82 - Encounter for delivery without indication (6) complicated by Suboxone maintenance, antepartum: Status: Acute Category: Medical Code(s): O99.320 - Drug use complicating , unspecified trimester; F11.20 - Opioid dependence, uncomplicated (7) with pre-existing hypertension: Status: Acute Category: Medical Code(s): O10.919 - Unspecified pre-existing hypertension complicating , unspecified trimester (8) Tobacco dependence syndrome: Status: Acute Category: Medical Code(s): F17.200 - Nicotine dependence, unspecified, uncomplicated Plan She continues to do well. We will plan to send her home on postop day 2.
[2022-09-12 06:39] VITALS: RESP 18
--- NOTE | 2022-09-12 09:14 | EXP.DC.SUM ---
General Admission date:: 09/10/22 Discharge date: 09/12/22 HPI HPI HPI: She is a 37-year-old 2 para 1 who is 39 weeks gestational age. She has had a previous section as result of that was offered repeat lower segment transverse section at term. She also expressed a desire for sterilization. She has increased blood pressure and takes labetalol 400 mg twice daily. She has advanced maternal age. She takes Subutex for previous drug abuse. It was determined after her admission that she had not been taking Subutex. She had not seen in the clinic for at least 3 months. Hospital Course Hospital Course Hospital Course: On September 10, 2022 she underwent a repeat lower segment transverse section. She delivered a liveborn male child. The baby had Apgars of 9 at 1 minute and 9 at 5 minutes. The baby weighed 6 pounds 10 ounces. Baby was 18-1/2 inches long. She has done well and has remained afebrile without her hospitalization. She is eating and drinking and sitting. She is bottlefeeding. Her lochia is normal. Her pain is well controlled with the T AP block. She will be discharged home to follow-up with me in approximately 2 weeks time. She will continue with her vitamins and iron. She will continue with her labetalol 400 mg twice daily. she given a prescription for Percocet 5/325 number 20 tablets. She has O- blood, she is rubella immune and was group B streptococcus negative. The baby had Rh- blood so she did not receive RhoGAM. Exam Data for Last 24 hours Vital signs and Labs for Last 24 Hours: Temp Pulse Resp BP Pulse Ox 98.0 F 91 H 18 118/77 98 09/10/22 16:52 09/10/22 16:52 09/12/22 06:39 09/10/22 16:52 09/10/22 09:40 I & O for Last 24 hours: Intake & Output 09/09/22 09/10/22 09/11/22 09/12/22 11:59 11:59 11:59 11:59 Intake Total 1000 / 1000 Output Total 400 / 400 900 / 900 Balance 600 / 600 -900 / -900 Weight 248 lb Constitutional Constitutional: no acute distress *Routine HEENT Exam Head: Present normocephalic *Routine Neck Exam Neck: Present full ROM *Routine Respiratory Exam Respiratory: Present normal respiratory effort *Routine Abdominal Exam Abdominal: Present soft; Absent tenderness Comments: Incision is clean and dry. DS: Diagnosis Discharge Diagnosis (1) Advanced maternal age in multigravida: Status: Acute Code(s): O09.529 - Supervision of elderly multigravida, unspecified trimester (2) Sterilization: Status: Acute Code(s): Z30.2 - Encounter for sterilization (3) Hypertensive disorder: Status: Acute Code(s): I10 - Essential (primary) hypertension Qualifiers: Hypertension type: essential hypertension Qualified Code(s): I10 - Essential (primary) hypertension (4) History of section: Status: Acute Code(s): Z98.891 - History of uterine scar from previous surgery (5) delivery delivered: Status: Acute Code(s): O82 - Encounter for delivery without indication (6) complicated by Suboxone maintenance, antepartum: Status: Acute Code(s): O99.320 - Drug use complicating , unspecified trimester; F11.20 - Opioid dependence, uncomplicated (7) with pre-existing hypertension: Status: Acute Code(s): O10.919 - Unspecified pre-existing hypertension complicating , unspecified trimester (8) Tobacco dependence syndrome: Status: Acute Code(s): F17.200 - Nicotine dependence, unspecified, uncomplicated Meds Home Medications and Allergies Home Medications Medication Instructions Recorded Confirmed Type ferrous sulfate 325 mg (65 mg 325 mg PO DAILY Supplement 06/21/22 09/10/22 History iron) tablet,delayed release labetalol 200 mg tablet 400 mg PO BID Hypertension 09/10/22 09/10/22 History oxycodone-acetaminophen 5 mg-325 1 tab PO Q6 PRN sev
--- NOTE | 2022-09-17 07:39 | P.PNANES_ITS ---
[facility] Anesthesia Record Part II Anesthesia Record Part II Discharge Time: 09:40 Destination: Obstetric Gynecology Dept PACU nurse assessment reviewed?: Yes Patient Condition:: Good Anesthesia Complications:: None Swallowing reflex intact?: Yes Cyanosis?: No Blood Pressure: 134/82 Pulse Rate: 82 Temperature: 97.1 F Mental Status: Alert & Oriented Pain level:: 0 Nausea and/or vomitting:: None Intake, IV Amount: 0
[2022-09-17 07:40] VITALS: BP 134/82; PULSE 82; TEMP 36.2
[2022-11-08 13:01] LABS: Buprenorphine POSITIVE
== END 2022-09-12 11:10 | disposition home or self-care (01) | DRG 784 ==
PROVIDERS: Admitting Provider Nurse Practitioner Obstetrics & Gynecology; PCP Nurse Practitioner Family; Visit Provider Nurse Practitioner Obstetrics & Gynecology
PROC: 10D00Z1 Extraction of Products of Conception, Low, Open Approach (ICD-10-PCS; CPT 59514; principal; 2022-09-10 07:30)
DX: O34.211 Maternal care for low transverse scar from previous cesarean delivery (principal); O99.324 Drug use complicating childbirth; N85.8 Other specified noninflammatory disorders of uterus; Z3A.39 39 weeks gestation of pregnancy; Z37.0 Single live birth; Z30.2 Encounter for sterilization; O99.334 Smoking (tobacco) complicating childbirth
CPT/HCPCS: 59514; 58700; 36415; 59025; 80053; 80305; 80348; 81001; 82800; 85014; 85018; 85025; 86850; 86870; 87636; 94761; 96374; C9290; C9803; G0283; J2405; U0003; U0005

== ENCOUNTER → 2022-10-22 11:22 | Outpatient (CLI) | payer BC, SELFPAY ==
[2022-10-22 12:40] LABS: Free Thyroxine Index 3.4 ug/dL (5.93-13.13); T4 (Thyroxine) 11.2 ug/dl (5.53-11.0); Triiodothryronine (T3) Uptake 30 % (23.5-40.5)
[2022-10-22 12:53] LABS: Thyroid Stimulating Hormone 1.94 uIU/mL (0.465-4.68)
== END ==
PROVIDERS: PCP Nurse Practitioner Family; Visit Provider Nurse Practitioner Obstetrics & Gynecology
DX: R53.83 Other fatigue (principal)
CPT/HCPCS: 36415; 84436; 84443; 84479

== ENCOUNTER → 2022-12-14 10:24 | Outpatient (CLI) | payer BC, SELFPAY ==
[2022-12-14 12:05] LABS: Free Thyroxine Index 2.5 ug/dL (5.93-13.13); T4 (Thyroxine) 8.9 ug/dl (5.53-11.0); Triiodothryronine (T3) Uptake 28 % (23.5-40.5)
[2022-12-14 12:18] LABS: Thyroid Stimulating Hormone 1.28 uIU/mL (0.465-4.68)
== END ==
PROVIDERS: PCP Nurse Practitioner Family; Visit Provider Nurse Practitioner Obstetrics & Gynecology
DX: R53.83 Other fatigue (principal)
CPT/HCPCS: 36415; 84436; 84443; 84479

== ENCOUNTER 2023-05-07 18:29 | Outpatient (CLI) | payer BC, SELFPAY ==
--- NOTE | 2023-05-07 18:38 | XR_ITS ---
PROCEDURE INFORMATION: Exam: XR Chest Exam date and time: 05/07/2023 6:31 PM Age: 38 years old Clinical indication: Cough and shortness of breath and wheezing and other: Green/yellow sputum; Additional info: Wheezing x 1 mo . TECHNIQUE: Imaging protocol: Radiologic exam of the chest. Views: 2 views. COMPARISON: No relevant prior studies available. FINDINGS: Lungs: No consolidation. Pleural spaces: No pleural effusion. No pneumothorax. Heart/Mediastinum: No cardiomegaly. Bones/joints: Unremarkable. IMPRESSION: No acute pulmonary findings.
== END 2023-05-07 23:59 ==
LOC: RAD 18:32
PROVIDERS: PCP Nurse Practitioner Family; Visit Provider Nurse Practitioner Family
DX: R06.2 Wheezing (principal); R05.9 Cough, unspecified; R06.02 Shortness of breath
CPT/HCPCS: 71046

== ENCOUNTER 2023-06-25 13:37 | Emergency (ER) | payer BC, SELFPAY ==
[2023-06-25] VITALS (9 sets, daily range): BP systolic 103–144; BP diastolic 61–84; PULSE 84–95; RESP 13–18; TEMP 36.7–36.8; O2SAT 96–100; BMI 38.7
--- NOTE | 2023-06-25 13:45 | ECG_ITS ---
APPROVED REPORT Exam: Resting ECG HR:94 bpm ECG Measurements Heart Rate 94 AXES DC 140 P 66 QRSd 92 QRS 50 QT 352 T 44 QTc 403 Conclusion SINUS RHYTHM WITH OCCASIONAL VENTRICULAR PREMATURE COMPLEXES MODERATE ST DEPRESSION [0.05+ mV ST DEPRESSION] ABNORMAL ECG Electronically signed by : DEWAYNE CORNELIUS, 06/26/2023 23:13:18
--- NOTE | 2023-06-25 13:50 | PC.NURSE ---
DR HARGROVE AT BEDSIDE
--- NOTE | 2023-06-25 13:57 | XR_ITS ---
FINAL REPORT CLINICAL HISTORY: palpitations, lightheaded FINDINGS: SINGLE-VIEW CHEST The heart size is normal. The mediastinum is normal. The lungs are clear. There is no pneumothorax. IMPRESSION: No acute cardiopulmonary process. Reviewed, Interpreted and Dictated by Wale Rios III, MD Transcribed by Lien Mallory Authenticated and [facility]
--- NOTE | 2023-06-25 14:02 | ED_ITS ---
Discharge Plan Disposition Patient Disposition: Home, Self-Care Prescriptions Prescriptions: No Action azithromycin [Zithromax Z-Rolf] 250 mg tablet See Rx Instructions PO .COMPLEX 5 Days Qty: 6 0RF Rx Instructions: For 250 mg dose pack: take 500 mg today (day 1), then 250 mg for 4 days (days 2-5) PO prednisone 20 mg tablet 20 mg PO BID 5 Days Qty: 10 0RF albuterol sulfate 90 mcg/actuation HFA aerosol inhaler 2 puff inhalation Q4-6H PRN (Reason: shortness of breath or wheezing) Qty: 8.5 0RF metoprolol succinate 25 mg tablet extended release 24 hr 25 mg PO DAILY Qty: 30 2RF Referrals Follow up/Referrals: Paige Persaud APRN [Primary Care Provider] - See instructions Luis Fernando Roberts MD [Staff Physician] - See instructions Activity Restrictions/Add. Instructions Additional Instructions/Restrictions: No emergent medical condition identified today he had numerous symptomatic PVCs while in the emergency department. Please take your beta-cecile as prescribed and follow-up as soon as possible with cardiology call tomorrow make next available appointment return with any prolonged symptoms or other concerns Clinical Impressions Clinical Impression: Heart palpitations, Symptomatic PVCs Discharge ED Provider: Tristan Pollack General Adult HPI <Brendan Victor MD - Last Filed: 06/25/23 15:02> General Chief complaint: Arrhythmia/Palpitations Stated complaint: weakness, heart off rythem Time Seen by Provider: 06/25/23 13:43 Mode of Arrival: Ambulatory Source of Information: Patient Limitations: No Limitations Description of Symptoms (Recalled from ER Triage Doc. by RN): PT REPORTS HEART RACING BEFORE LUNCH, LIGHTHEADED AT LUNCH. WENT BACK TO WORK AND FELT LIGHTHEADED AGAIN AND LEGS FELT HEAVY. EVALUATED BY NURSE AT WORK, REPORTS HEART SKIPPING A BEAT . ON BETA CECILE FOR SIMILAR EPISODE, DOSE DECREASED ABOUT 3 MONTHS AGO FOR HYPOTENSION. DENIES SHORTNESS OF BREATH, NO N/V. 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 [place] lightheaded after having a couple palpitations. Patient does say that she recently had her metoprolol does cut in half by her primary care provider and she has been drinking coffee more often than she had in the past. Thinks this may be related, but came in to make sure everything was okay. Denies overt chest pain, shortness of breath, nausea vomiting, diaphoresis. Discomfort is not positional, exertional, and is random. Please note that above description of symptoms, in this electronic medical record under categorization of recalled from ER triage doctor by RN are reflective of an initial nursing assessment, however, is not reflective of my full history and physical exam that was personally taken and clarified. Consequentially, this preceding description of symptoms, which may include the patient's categorized chief complaint in the EMR, do not reflect my personal clinical impression, and the ultimate description of history of present illness and patient stated complaints should be deferred to this section of the note. Unless stated otherwise or congruent with this section of the note, additional signs, symptoms, or incongruence should be interpreted as inaccurate with my clinical impression. Related Data Previous Rx's Medication Instructions Recorded albuterol sulfate 90 mcg/actuation 2 puff inhalation Q4-6H PRN 04/17/23 aerosol inhaler shortness of breath or wheezing #8.5 grams azithromycin 250 mg tablet See Rx Instructions PO .COMPLEX 5 05/07/23 (Zithromax Z-Rolf) days #6 tabs prednisone 20 mg tablet 20 mg PO BID 5 days #10 tabs 05/07/23 metoprolol succinate 25 mg 25 mg PO DAILY #30 tabs 06/25/23 tablet,extended release 24 hr Allergies Allergy/AdvReac Type Severity Reaction Status Date / Time No Known Allergies Allergy Verified 05/07/23 14:11 [facility] <Brendan Victor MD - Last Filed: 06/25/23 15:02> [facility] Disclaimer: The information contained in this section may have been updated after the patient was seen, as this information can be updated by other users. Medical History Exposure to COVID-19 virus Hypertensive disorder Intermittent palpitations Palpitations complicated by Suboxone maintenance, antepartum Premature atrial contraction Ventricular premature beats Surgical History H/O tubal ligation History of section Hx of cholecystectomy Social History Smoking Status: Former smoker tobacco type: cigarettes packs per day: 1 years smoked: 10 how long ago did patient quit smokin02/20/2023 alcohol intake: never substance use type: former substance user and sedatives current occupational status: employed Travel in the last 8 weeks: None housing: house current occupation: [employer] current occupational exposures/hazards: Yes caffeine: Yes <Brendan Victor MD - Last Filed: 06/25/23 15:02> ROS Obtained: Yes All systems reviewed & no additional complaints except as documented Physical Exam <Brendan Victor MD - Last Filed: 06/25/23 15:02> General General appearance: alert and in no apparent distress Head Head exam: atraumatic and normocephalic Eye Eye exam: Present normal appearance, PERRL and EOMI ENT ENT exam: Present mucous membranes moist Neck Neck exam: Present normal inspection, full ROM and trachea midline Respiratory Respiratory exam: Present normal lung sounds bilaterally; Absent respiratory distress, wheezes, stridor, accessory muscle use or prolonged expiratory phase Cardiovascular Cardiovascular exam: Present regular rate, normal rhythm and systolic murmur Abdominal Exam Abdominal exam: Present soft; Absent distention, tenderness, guarding, rebound or rigidity Extremities Exam Extremities exam: Absent edema Neurological Exam Neurological exam: Present alert, oriented X3, CN II-XII intact and normal gait; Absent motor sensory deficit Skin Skin exam: Present warm and dry; Absent diaphoresis or erythema Medical Decision Making <Brendan Victor MD - Last Filed: 06/25/23 15:02> Medical Records Medical records reviewed: Yes I reviewed the patient's medical records. Nelson Inquiry Pt receiving controlled substance: No Nelson was queried for this patient: No Vital Signs: 06/25/23 13:38 06/25/23 13:47 06/25/23 14:07 Temperature 98.1 F Temperature Source Oral Pulse Rate 89 89 Pulse Rate [Apical] 95 H Respiratory Rate 18 18 16 Blood Pressure 144/84 H 131/66 Blood Pressure [Right Arm] 144/84 H Blood Pressure Mean [Right Arm] 104 Blood Pressure Source [Right Arm] Automatic Cuff Blood Pressure Position [Right Arm] Standing 02 Sat by Pulse Oximetry 98 100 100 Oxygen Delivery Method Room Air Room Air Room Air 06/25/23 14:31 06/25/23 15:00 06/25/23 15:30 Temperature Temperature Source Pulse Rate 95 H 90 92 H Pulse Rate [Apical] Respiratory Rate 13 14 15 Blood Pressure 121/74 123/72 117/61 Blood Pressure [Right Arm] Blood Pressure Mean [Right Arm] Blood Pressure Source [Right Arm] Blood Pressure Position [Right Arm] 02 Sat by Pulse Oximetry 96 100 99 Oxygen Delivery Method Room Air Room Air 06/25/23 16:00 06/25/23 16:30 Temperature Temperature Source Pulse Rate 88 85 Pulse Rate [Apical] Respiratory Rate 14 16 Blood Pressure 103/65 L 110/66 Blood Pressure [Right Arm] Blood Pressure Mean [Right Arm] Blood Pressure Source [Right Arm] Blood Pressure Position [Right Arm] 02 Sat by Pulse Oximetry 98 99 Oxygen Delivery Method Room Air Room Air Lab Data Lab Results 06/25/23 14:00: WBC 7.8, RBC 5.03, Hgb 15.5, Hct 46.5, MCV 92.3, MCH 30.8, MCHC 33.4, RDW 12.4, Plt Count 218, MPV 8.4, Neut % (Auto) 71.6, Lymph % (Auto) 22.5, Schleicher % (Auto) 3.7, Eos % (Auto) 1.0, Baso % (Auto) 1.1, Neut # (Auto) 5.6, Lymph # (Auto) 1.7, Schleicher # (Auto) 0.3, Eos # (Auto) 0.1, Baso # (Auto) 0.1, Sodium 138, Potassium 3.9, Chloride 107, Carbon Dioxide 25, Anion Gap 9.9, BUN 17, Creatinine 0.80, Estimated Creat Clear 161, Estimated GFR 79, Est GFR ( Amer) 96, Glucose 164 H, Calcium 9.1, Phosphorus 2.6, Magnesium 1.9, Total Bilirubin 0.8, AST 38 H, ALT 26, Alkaline Phosphatase 77, Troponin I < 0.01, NT-Pro-B Natriuret Pep 79.1, Total Protein 6.9, Albumin 4.4, Globulin 2.5, Albumin/Globulin Ratio 1.8, TSH 1.07, Thyroxine (T4) 11.1 H 06/25/23 16:29: Troponin I < 0.01 06/25/23 14:00 06/25/23 14:00 Orders (Tests/Meds): ORDERS Category Date Time Status CXR --portable [XR chest portable] Stat Exams 06/25/23 13:57 Completed CBC w/Auto Diff [Complete Blood Count Auto Diff] Stat Lab 06/25/23 14:00 Completed CMP [Comprehensive Metabolic Panel] Stat Lab 06/25/23 14:00 Completed Magnesium Stat Lab 06/25/23 14:00 Completed NT Pro Brain Natriuretic Pep. Stat Lab 06/25/23 14:00 Completed Phosphorous Stat Lab 06/25/23 14:00 Completed T4 (Thyroxine) Stat Lab 06/25/23 14:00 Completed TSH [Thyroid Stimulating Hormone] Stat Lab 06/25/23 14:00 Completed Trop I [Troponin I] Stat Lab 06/25/23 14:00 Completed Troponin I Q3H Lab 06/25/23 16:29 Completed Troponin I Q3H Lab 06/25/23 20:00 Ordered HEART Score History (anamnesis): Slightly suspicious ECG: Normal Age: <45 years Risk factors: 1-2 risk factors Troponin: </= normal limit HEART Score: 1 Medical Decision Narrative: Is a 38-year-old female history of previous IV drug abuse been on Suboxone and clean for 10 years, palpitations currently on metoprolol following with cardiology and her family doctor presenting with palpitations. 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 [place] lightheaded after having a couple palpitations. Patient does say that she recently had her metoprolol does cut in half by her primary care provider and she has been drinking coffee more often than she had in the past. Thinks this may be related, but came in to make sure everything was okay. Denies overt chest pain, shortness of breath, nausea vomiting, diaphoresis. Discomfort is not positional, exertional, and is random. History was obtained via conversation with patient. On arrival, patient hemodynamically stable, alert, oriented x4, appropriate, GCS 15, moving all extremities spontaneously, pupils equal and reactive to light. Full physical exam performed and significant for very well- appearing woman in no acute distress. Lungs are clear to auscultation. Patient does have right upper sternal border murmur 1 out of 6 with intermittent PVCs. Patient also has 1+ lower extremity pitting edema. Pulses are equal and symmetric in bilateral upper and lower extremities. Lungs are clear to auscultation bilaterally. Neurologically intact. Differential includes metabolic abnormality, endocrinologic abnormality, CHF, ACS, SD, dissection, arrhythmia, among others. Workup independently interpreted and significant for nonactionable CBC or chemistry, magnesium, phosphorus normal. Initial troponin negative. See radiology read for full review of final results. Independent interpretation of EKG shows sinus rhythm 94 beats a minute no ST elevations concerning for acute STEMI. KS, QRS, QT intervals within normal limits. T wave changes which are nonspecific. Heart score 1. Prior to delta troponin, care handed off to oncoming physician. <Tristan Pollack MD - Last Filed: 06/25/23 17:16> Vital Signs: 06/25/23 13:38 06/25/23 13:47 06/25/23 14:07 Temperature 98.1 F Temperature Source Oral Pulse Rate 89 89 Pulse Rate [Apical] 95 H Respiratory Rate 18 18 16 Blood Pressure 144/84 H 131/66 Blood Pressure [Right Arm] 144/84 H Blood Pressure Mean [Right Arm] 104 Blood Pressure Source [Right Arm] Automatic Cuff Blood Pressure Position [Right Arm] Standing 02 Sat by Pulse Oximetry 98 100 100 Oxygen Delivery Method Room Air Room Air Room Air 06/25/23 14:31 06/25/23 15:00 06/25/23 15:30 Temperature Temperature Source Pulse Rate 95 H 90 92 H Pulse Rate [Apical] Respiratory Rate 13 14 15 Blood Pressure 121/74 123/72 117/61 Blood Pressure [Right Arm] Blood Pressure Mean [Right Arm] Blood Pressure Source [Right Arm] Blood Pressure Position [Right Arm] 02 Sat by Pulse Oximetry 96 100 99 Oxygen Delivery Method Room Air Room Air 06/25/23 16:00 06/25/23 16:30 Temperature Temperature Source Pulse Rate 88 85 Pulse Rate [Apical] Respiratory Rate 14 16 Blood Pressure 103/65 L 110/66 Blood Pressure [Right Arm] Blood Pressure Mean [Right Arm] Blood Pressure Source [Right Arm] Blood Pressure Position [Right Arm] 02 Sat by Pulse Oximetry 98 99 Oxygen Delivery Method Room Air Room Air Lab Data Lab results reviewed: Yes I reviewed the patient's lab results. Lab Results 06/25/23 14:00: WBC 7.8, RBC 5.03, Hgb 15.5, Hct 46.5, MCV 92.3, MCH 30.8, MCHC 33.4, RDW 12.4, Plt Count 218, MPV 8.4, Neut % (Auto) 71.6, Lymph % (Auto) 22.5, Schleicher % (Auto) 3.7, Eos % (Auto) 1.0, Baso % (Auto) 1.1, Neut # (Auto) 5.6, Lymph # (Auto) 1.7, Schleicher # (Auto) 0.3, Eos # (Auto) 0.1, Baso # (Auto) 0.1, Sodium 138, Potassium 3.9, Chloride 107, Carbon Dioxide 25, Anion Gap 9.9, BUN 17, Creatinine 0.80, Estimated Creat Clear 161, Estimated GFR 79, Est GFR ( Amer) 96, Glucose 164 H, Calcium 9.1, Phosphorus 2.6, Magnesium 1.9, Total Bilirubin 0.8, AST 38 H, ALT 26, Alkaline Phosphatase 77, Troponin I < 0.01, NT-Pro-B Natriuret Pep 79.1, Total Protein 6.9, Albumin 4.4, Globulin 2.5, Albumin/Globulin Ratio 1.8, TSH 1.07, Thyroxine (T4) 11.1 H 06/25/23 16:29: Troponin I < 0.01 Orders (Tests/Meds): ORDERS Category Date Time Status CXR --portable [XR chest portable] Stat Exams 06/25/23 13:57 Completed CBC w/Auto Diff [Complete Blood Count Auto Diff] Stat Lab 06/25/23 14:00 Completed CMP [Comprehensive Metabolic Panel] Stat Lab 06/25/23 14:00 Completed Magnesium Stat Lab 06/25/23 14:00 Completed NT Pro Brain Natriuretic Pep. Stat Lab 06/25/23 14:00 Completed Phosphorous Stat Lab 06/25/23 14:00 Completed T4 (Thyroxine) Stat Lab 06/25/23 14:00 Completed TSH [Thyroid Stimulating Hormone] Stat Lab 06/25/23 14:00 Completed Trop I [Troponin I] Stat Lab 06/25/23 14:00 Completed Troponin I Q3H Lab 06/25/23 16:29 Completed Troponin I Q3H Lab 06/25/23 20:00 Ordered HEART Score HEART Score: 1 Medical Decision Narrative: Is a 38-year-old female history of previous IV drug abuse been on Suboxone and clean for 10 years, palpitations currently on metoprolol following with cardiology and her family doctor presenting with palpitations. 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 [place] lightheaded after having a couple palpitations. Patient does say that she recently had her metoprolol does cut in half by her primary care provider and she has been drinking coffee more often than she had in the past. Thinks this may be related, but came in to make sure everything was okay. Denies overt chest pain, shortness of breath, nausea vomiting, diaphoresis. Discomfort is not positional, exertional, and is random. History was obtained via conversation with patient. On arrival, patient hemodynamically stable, alert, oriented x4, appropriate, GCS 15, moving all extremities spontaneously, pupils equal and reactive to light. Full physical exam performed and significant for very well- appearing woman in no acute distress. Lungs are clear to auscultation. Patient does have right upper sternal border murmur 1 out of 6 with intermittent PVCs. Patient also has 1+ lower extremity pitting edema. Pulses are equal and symmetric in bilateral upper and lower extremities. Lungs are clear to auscultation bilaterally. Neurologically intact. Differential includes metabolic abnormality, endocrinologic abnormality, CHF, ACS, SD, dissection, arrhythmia, among others. Workup independently interpreted and significant for nonactionable CBC or chemistry, magnesium, phosphorus normal. Initial troponin negative. See radiology read for full review of final results. Independent interpretation of EKG shows sinus rhythm 94 beats a minute no ST elevations concerning for acute STEMI. KS, QRS, QT intervals within normal limits. T wave changes which are nonspecific. Heart score 1. Prior to delta troponin, care handed off to oncoming physician. This is Dr. Pollack I took over from Dr. Victor at 3 PM to follow-up on serial troponins. Second troponin negative. Patient was on a monitor had regular symptomatic PVCs while in the ED. She has been self decreasing her beta-cecile dosing in addition to having decreased recently. I advised that she continue to take her beta-cecile as instructed. I also advised that she follow-up closely with cardiology to discuss this further. Remainder of her workup unremarkable. No runs of sustained V. tach etc. She was discharged in stable condition. Critical Care <Brendan Victor MD - Last Filed: 06/25/23 15:02> Critical Care Time Critical Care Time: No
--- NOTE | 2023-06-25 14:16 | PC.NURSE ---
XR AT BEDSIDE
[2023-06-25 14:19] LABS: Basophils # 0.1 K/mm3 (0-0.2); Basophils % 1.1 % (0.1-2.0); Eosinophils # 0.1 K/mm3 (0.0-0.4); Hematocrit 46.5 % (37.0-47.0); Hemoglobin 15.5 g/dL (12.2-16.2); Lymphocytes # 1.7 K/mm3 (0.7-4.5); Lymphocytes % 22.5 % (10-50); Mean Corpuscular HGB Conc 33.4 g/dL (31.8-35.4); Mean Corpuscular Hemoglobin 30.8 pg (27.0-31.2); Mean Corpuscular Volume 92.3 fl (81-99); Mean Platelet Volume 8.4 fl (7.4-10.4); Monocytes # 0.3 K/mm3 (0.1-1.0); Monocytes % 3.7 % (1.7-9.3); Neutrophils # 5.6 K/mm3 (1.8-7.8); Neutrophils % 71.6 % (37.0-80.0); Platelet Count 218 K/mm3 (142-424); Red Blood Count 5.03 M/mm3 (4.20-5.40); Red Cell Distribution Width 12.4 % (11.5-17.5); White Blood Count 7.8 K/mm3 (4.8-10.8)
[2023-06-25 14:29] LABS: Chloride 107 mmol/L (98-107); Potassium 3.9 mmoL/L (3.5-5.1); Sodium 138 mmol/L (136-145)
[2023-06-25 14:31] LABS: Alanine Aminotransferase 26 U/L (12-78); Albumin Level 4.4 g/dl (3.5-5.0); Albumin/Globulin Ratio 1.8 (1.1-1.8); Alkaline Phosphatase 77 U/L (38-126); Anion Gap 9.9 mEq/L (5-15); Aspartate Amino Transferase 38 U/L (14-36); Bilirubin,Total 0.8 mg/dl (0.2-1.3); Blood Urea Nitrogen 17 mg/dl (7-17); Carbon Dioxide 25 mmol/L (22.0-30.0); Creatinine Clearance Estimated 161 mL/min (50-200); Estimated Glomerular Filt Rate 79 ml/min (>60); GFR (African American) 96 ML/MIN (>60); Globulin 2.5 g/dL (1.3-3.2); Total Protein,Serum 6.9 g/dl (6.3-8.2)
[2023-06-25 14:32] LABS: Calcium 9.1 mg/dl (8.4-10.2); Glucose 164 mg/dl (74-100); Magnesium 1.9 mg/dl (1.6-2.3); Phosphorous 2.6 mg/dl (2.5-4.5)
--- NOTE | 2023-06-25 14:41 | PC.NURSE ---
Rounded on pt. No needs or complaints voiced at this time. Call light within reach.
[2023-06-25 14:48] LABS: Troponin I < 0.01 ng/ml (0.00-0.034)
--- NOTE | 2023-06-25 15:08 | PC.NURSE ---
PT ASSISTED TO BR
[2023-06-25 15:31] LABS: NT Pro Brain Natriuretic Pep. 79.1 pg/mL (0-125)
[2023-06-25 15:39] LABS: T4 (Thyroxine) 11.1 ug/dl (5.53-11.0)
--- NOTE | 2023-06-25 15:40 | PC.NURSE ---
Rounded on pt. Pt aware we are waiting to draw second trop. No needs voiced and call light within reach.
[2023-06-25 15:52] LABS: Thyroid Stimulating Hormone 1.07 uIU/mL (0.465-4.68)
--- NOTE | 2023-06-25 15:53 | PC.NURSE ---
ROUNDED ON PT, SITTING ON SIDE OF BED TALKING WITH FAMILY. NO NEEDS AT THIS TIME
--- NOTE | 2023-06-25 16:30 | PC.NURSE ---
Second trop drawn and sent to LAB. No needs voiced at this time and call light within reach.
[2023-06-25 17:08] LABS: Troponin I < 0.01 ng/ml (0.00-0.034)
--- NOTE | 2023-06-25 17:10 | PC.NURSE ---
DR LEMONS AT BEDSIDE TO UPDATE PT
== END 2023-06-25 17:22 | disposition home or self-care (01) ==
PROVIDERS: Emergency Medicine; Emergency Provider Student in an Organized Health Care Education/Training Program; PCP Nurse Practitioner Family
DX: I49.3 Ventricular premature depolarization (principal); R00.2 Palpitations; R42 Dizziness and giddiness; I10 Essential (primary) hypertension
CPT/HCPCS: 71045; 80053; 83735; 83880; 84100; 84436; 84443; 84484; 85025; 93005; 99284

== ENCOUNTER 2023-07-01 13:29 | Outpatient (CLI) | payer BC, SELFPAY | END 2023-07-01 23:59 | disposition home or self-care (01) | LOC: RT 13:29 | PROVIDERS: PCP Nurse Practitioner Family; Visit Provider Physician Assistant | DX: I49.3 Ventricular premature depolarization (principal); R00.2 Palpitations; I10 Essential (primary) hypertension; R94.31 Abnormal electrocardiogram [ECG] [EKG]; Z87.891 Personal history of nicotine dependence | CPT/HCPCS: 93225 ==

== ENCOUNTER 2023-07-05 14:17 | Outpatient (CLI) | payer BC, SELFPAY ==
--- NOTE | 2023-07-05 14:18 | CA_ITS ---
APPROVED REPORT EXAM: Comprehensive 2D, Doppler, and color-flow Echocardiogram Management Aide: Kristi Aguilar RDCS Ht: 5 ft 6 in Wt: 253lbs BSA: 2.21 BP: 124/82 mmHg Indications: ABN EKG,PALPS,PAC'S M-Mode Dimensions RVDd 1.27 cm (0.9-2.6) LA Diam 2.77 cm (1.9-4.0) LVDd 5.41 cm (3.5-5.7) LVDs 3.80 cm (3.5-5.7) IVSd 0.68 cm (0.6-1.1) PWd 0.93 cm (0.6-1.1) EF (Teich) 56.30% FS 29.80% EDV (Teich) 141.90 mL ESV (Teich) 62.00 mL LV Diastology E Decel Time 180 (160-240 msec) E/A Ratio 1.7 Mitral Valve MV E Max Yasmany. 112.0 (40-130 cm/s) MV A Velocity 66.0 (40-130 cm/s) E/A Ratio 1.70 MV PHT 53.0 ms Left Ventricle The left ventricle is normal size. The left ventricular systolic function is normal. The left ventricular ejection fraction is within the normal range. There is normal left ventricular wall thickness. There is normal LV segmental wall motion. The left ventricular diastolic function is normal. LVEF is 55%. Right Ventricle The right ventricle is normal size. The right ventricular systolic function is normal. Atria The left atrium size is normal. The right atrium size is normal. There is no Doppler evidence of interatrial shunt. Aortic Valve The aortic valve opens well. There is no aortic valvular stenosis. Trace aortic regurgitation. Mitral Valve The mitral valve is normal in structure. No evidence of mitral valve stenosis. Trace mitral regurgitation. Tricuspid Valve The tricuspid valve leaflets are thin and pliable. Trace tricuspid regurgitation. There is insufficient TR jet to estimate RVSP. Pulmonic Valve The pulmonary valve is normal in structure. Trace pulmonic regurgitation. Great Vessels The aortic root is not well-visualized. IVC is normal in size and collapses >50% with inspiration. Pericardium There is no pericardial effusion. Other Information Study Quality: Fair Conclusion Normal biventricular systolic function. No significant valvular stenosis or regurgitation. Electronically signed by : Honey Hummel MD 07/10/2023 00:44:51
== END 2023-07-05 23:59 ==
LOC: RT 14:18
PROVIDERS: PCP Nurse Practitioner Family; Visit Provider Physician Assistant
DX: R94.31 Abnormal electrocardiogram [ECG] [EKG] (principal); I49.3 Ventricular premature depolarization; R00.2 Palpitations; I10 Essential (primary) hypertension; F17.200 Nicotine dependence, unspecified, uncomplicated
CPT/HCPCS: 93306

== ENCOUNTER 2023-10-03 13:18 | Outpatient (POV) | payer BC, SELFPAY | END 2023-10-03 23:59 | disposition home or self-care (01) | LOC: SC 13:18 | PROVIDERS: Visit Provider Specialist/Technologist | DX: Z00.00 Encounter for general adult medical examination without abnormal findings (principal) ==

== ENCOUNTER 2023-12-19 08:34 | Outpatient (CLI) | payer BC, SELFPAY ==
--- NOTE | 2023-12-19 08:39 | MM_ITS ---
PROCEDURE INFORMATION: Exam: MG Bilateral Screening 3D Mammography Exam date and time: 12/19/2023 8:31 AM Age: 38 years old Clinical indication: Screening examination TECHNIQUE: Imaging protocol: Bilateral Screening tomosynthesis and 2D mammography including computer-aided detection (CAD) when performed. COMPARISON: No relevant prior studies available. FINDINGS: MAMMOGRAPHY: Breast composition: The breasts are almost entirely fatty. Mass: None. Architectural distortion: None. Calcifications: No suspicious calcifications. Asymmetric density: None. Skin thickening: None. Axillary adenopathy: None. IMPRESSION: No mammographic evidence of malignancy. Annual screening is recommended unless otherwise clinically indicated. ASSESSMENT: BI-RADS Category 1: Negative.
== END 2023-12-19 23:59 | disposition home or self-care (01) ==
LOC: RAD 08:35
PROVIDERS: PCP Nurse Practitioner Family; Visit Provider Internal Medicine
DX: Z12.31 Encounter for screening mammogram for malignant neoplasm of breast (principal)
CPT/HCPCS: 77063; 77067

== ENCOUNTER 2023-12-19 09:08 | Emergency (ER) | payer BC, SELFPAY ==
[2023-12-19 09:57] VITALS: BP 159/87; PULSE 78; RESP 20; TEMP 36.8; O2SAT 98; BMI 37.9
--- NOTE | 2023-12-19 10:06 | EXP.UTC ---
Discharge Plan Disposition Patient Disposition: Home, Self-Care Condition: Good Prescriptions Prescriptions: New amoxicillin 875 mg tablet 875 mg PO Q12H Qty: 20 0RF methylprednisolone 4 mg Tablets,Dose Pack 4 mg PO DIRECTED 6 Days Qty: 21 0RF Rx Instructions: Take 1 pack as directed for 6 days jotgmpfksqgljmo-xpqrnlspu-MB [Bromfed DM] 2-30-10 mg/5 mL Syrup 5 ml PO Q6H PRN (Reason: Cough) Qty: 240 0RF No Action metoprolol succinate 25 mg tablet extended release 24 hr 12.5 mg PO DAILY levocetirizine [Xyzal] 5 mg tablet 5 mg PO DAILY PRN Referrals Follow up/Referrals: Paige Persaud APRN [Primary Care Provider] - See instructions Activity Restrictions/Add. Instructions Additional Instructions/Restrictions: Drink plenty of fluids. Take tylenol or ibuprofen for pain or fever. Take the medications as directed. Follow up with your regular doctor. Follow up with your dentist. GO TO THE ER FOR ANY WORSENING SYMPTOMS Clinical Impressions Clinical Impression: Acute right otitis media Instructions Patient Instructions: Middle Ear Infection, Methylprednisolone, Amoxicillin Print Language Print Language: Omani Discharge ED Provider: Thompson Campbell [facility] General Stated complaint: ear/face pain Mode of Arrival: Ambulatory Source of Information: Patient Time Seen by Provider: 12/19/23 10:06 Description of Symptoms (Recalled from Triage Doc. by RN): left ear pain, sore throat, feels like neck is slightly swollen HEENT Symptoms (Recalled from RN notes): Yes Resp Symptoms (Recalled from RN notes): No Skin Symptoms (Recalled from RN notes): No MS Symptoms (Recalled from RN notes): No Functional Status (Recalled from RN notes): wnl Related Data Home Medications ?Medication ?Instructions ?Recorded ?Confirmed metoprolol succinate 25 mg 12.5 mg PO DAILY 06/27/23 12/12/23 tablet,extended release 24 hr levocetirizine 5 mg tablet (Xyzal) 5 mg PO DAILY PRN 12/12/23 Previous Rx's ?Medication ?Instructions ?Recorded amoxicillin 875 mg tablet 875 mg PO Q12H #20 tabs 12/19/23 oeqrklznbtkurme-aukzuqkftwujuqm-YW 5 ml PO Q6H PRN Cough #240 mL 12/19/23 2 mg-30 mg-10 mg/5 mL oral syrup (Bromfed DM) methylprednisolone 4 mg tablets in 4 mg PO DIRECTED 6 days #21 tabs 12/19/23 a dose pack Allergies Allergy/AdvReac Type Severity Reaction Status Date / Time No Known Allergies Allergy Verified 12/12/23 13:43 Worker's Comp Is this a Worker's Comp case?: No [facility] Disclaimer: The information contained in this section may have been updated after the patient was seen, as this information can be updated by other users. 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 current occupational status: employed Travel in the last 8 weeks: None housing: house current occupation: [employer] current occupational exposures/hazards: Yes caffeine: Yes ROS Obtained: Yes All systems reviewed & no additional complaints except as documented Constitutional Constitutional: Denies chills, Reports fever(s) and Reports poor appetite Eyes Eyes: Denies eye discharge ENT Ears, Nose, Mouth, and Throat: Denies ear discharge, Reports otalgia, Denies hearing loss, Denies sinus pain and Reports sore throat Cardiovascular Cardiovascular: Denies chest pain and Denies dyspnea Respiratory Respiratory: Denies chest congestion, Reports cough and Denies dyspnea Gastrointestinal Gastrointestingal: Denies abdominal pain, diarrhea, nausea or vomiting Musculoskeletal Musculoskeletal: Denies arthralgias Integumentary/Breasts Skin/Breast: Denies rash Physical Exam General General appearance: alert and in no apparent distress Head Head exam: atraumatic, normocephalic and normal inspection Eye Eye exam: Present normal appearance; Absent PERRL or EOMI ENT ENT exam: Present mucous membranes moist and normal external ear exam Expanded ENT Exam TM/Canal exam: Bilateral TM: erythema, bulging and effusion Nose exam: Absent sinus tenderness Nasal speculum exam: Bilateral: normal Mouth exam: Present normal external inspection and other; Absent drooling Teeth exam: Present normal inspection Throat exam: Present tonsillar erythema and tonsillomegaly Neck Neck exam: Present normal inspection, full ROM and trachea midline; Absent tenderness, meningismus or lymphadenopathy Chest Chest inspection: Present normal inspection and symmetric chest wall rise; Absent tenderness Respiratory Respiratory exam: Present normal lung sounds bilaterally; Absent respiratory distress, wheezes or stridor Cardiovascular Cardiovascular exam: Present regular rate, normal rhythm and normal heart sounds; Absent tachycardia or irregular rhythm Abdominal Exam Abdominal exam: Present soft and normal bowel sounds; Absent distention, tenderness, guarding, rebound or rigidity Extremities Exam Extremities exam: Present normal inspection and normal capillary refill; Absent tenderness, joint swelling or calf tenderness Back Exam Back exam: Present normal inspection and full ROM; Absent tenderness, CVA tenderness (R) or CVA tenderness (L) Neurological Exam Neurological exam: Present alert, oriented X3, CN II-XII intact, normal gait and reflexes normal; Absent motor sensory deficit Psychiatric Psychiatric exam: Present normal affect and normal mood Skin Skin exam: Present warm, dry, intact and normal color Lymphatic Lymphatic Findings: no adenopathy Medical Decision Making Medical Records Medical records reviewed: No I reviewed the patient's medical records. Screening: Per USPSTF and CDC recommendations, given the prevalence of disease in our region, it is our hospital?s policy to screen for HIV and viral Hepatitis for all patients aged 18 and over and those with ongoing risk factors. Nelson Inquiry Pt receiving controlled substance: No Vital Signs: 12/19/23 09:57 Temperature 98.3 F Temperature Source Oral Pulse Rate [Left Radial] 78 Respiratory Rate 20 Blood Pressure [Left Arm] 159/87 H Blood Pressure Mean [Left Arm] 111 02 Sat by Pulse Oximetry 98
[2023-12-19 10:42] VITALS: BP 159/87; PULSE 78; RESP 20; TEMP 36.8
== END 2023-12-19 10:43 | disposition home or self-care (01) ==
PROVIDERS: Emergency Provider Nurse Practitioner Family; PCP Nurse Practitioner Family
DX: H66.91 Otitis media, unspecified, right ear (principal)
CPT/HCPCS: 99212; G0381

== ENCOUNTER 2024-01-14 13:42 | Outpatient (CLI) | payer BC, SELFPAY ==
[2024-01-14 15:32] LABS: T4 (Thyroxine) 10.6 ug/dl (5.53-11.0)
[2024-01-14 15:45] LABS: Thyroid Stimulating Hormone 1.32 uIU/mL (0.465-4.68)
[2024-01-14 16:05] LABS: Vitamin B12 636 pg/mL (239-931)
[2024-01-14 17:15] LABS: Ferritin 67.6 ng/ml (6.24-137)
[2024-01-15 11:24] LABS: Thyroid Peroxidase Antibodies 13 IU/mL (0-34); Triiodothyronine (T3) Free 3.1 pg/mL (2.0-4.4)
[2024-01-15 16:55] LABS: Thyroglobulin Level <1.0 IU/mL (0.0-0.9)
[2024-01-27 15:57] LABS: Antinuclear Antibodies (ANA) NEGATIVE
== END 2024-01-14 23:59 | disposition home or self-care (01) ==
LOC: LAB 13:43
PROVIDERS: PCP Nurse Practitioner Family; Visit Provider Nurse Practitioner Family
DX: R79.89 Other specified abnormal findings of blood chemistry (principal); L65.9 Nonscarring hair loss, unspecified
CPT/HCPCS: 36415; 82607; 82728; 84436; 84439; 84443; 84481; 86038; 86225; 86235; 86376; 86800

== ENCOUNTER 2024-01-23 10:40 | Outpatient (CLI) | payer BC, SELFPAY ==
--- NOTE | 2024-01-23 10:41 | US_ITS ---
FINAL REPORT CLINICAL HISTORY: LT AXILLA PAIN COMPARISON: None FINDINGS: Limited sonographic images were obtained of the soft tissues in the left axillary region. There are several small and borderline size left axillary nodes seen. There is no evidence of mass or fluid collection. IMPRESSION: Several small and borderline size left axillary nodes. No evidence of mass or fluid collection. Authenticated and ERN
== END 2024-01-23 23:59 | disposition home or self-care (01) ==
LOC: RAD 10:41
PROVIDERS: PCP Nurse Practitioner Family; Visit Provider Nurse Practitioner Family
DX: M79.622 Pain in left upper arm (principal)
CPT/HCPCS: 76642

== ENCOUNTER 2024-03-17 09:21 | Outpatient (CLI) | payer BC, SELFPAY ==
--- NOTE | 2024-03-17 09:22 | MR_ITS ---
FINAL REPORT TECHNIQUE: Multiplanar and multisequence imaging of the shoulder was obtained without contrast. CLINICAL HISTORY: left shoulder pain, left axillary lump COMPARISON: None FINDINGS: Bones/Joint: Small T2 hyperintense and T1 hypointense lesion in the proximal left humeral shaft measuring 9 mm with benign and nonaggressive features. No edema. There is no fracture. The AC joint is intact. Rotator Cuff: There is no full thickness rotator cuff tear. There is no fatty atrophy of the rotator cuff musculature. Labrum: SLAP type II tear superior labrum. Remainder of the labrum is intact. The biceps labral complex is intact. The glenohumeral ligaments are intact. Other: The more distal biceps tendon is located within the bicipital groove. There is no joint effusion. Remaining soft tissues are within normal limits. IMPRESSION: SLAP type II tear superior labrum. No rotator cuff tendon tear. Nonspecific but benign-appearing small lesion proximal left humerus. Reviewed, Interpreted and Dictated by Marjorie Gasca MD Transcribed by Judy Gay Authenticated and [facility]
== END 2024-03-17 23:59 | disposition home or self-care (01) ==
LOC: RAD 09:22
PROVIDERS: PCP Nurse Practitioner Family; Visit Provider Nurse Practitioner Family
DX: M79.622 Pain in left upper arm (principal); M25.512 Pain in left shoulder
CPT/HCPCS: 73221

== ENCOUNTER 2024-04-22 14:32 | Outpatient (CLI) | payer BC, SELFPAY ==
[2024-04-22 14:16] LABS: Coronavirus 19, PCR Not Detected (NotDetected); Human Rhinovirus Not Detected (NotDetected); Influenza A, PCR Not Detected (NotDetected); Influenza B, PCR Not Detected (NotDetected); Respiratory Syncytial Virus Not Detected (NotDetected)
== END 2024-04-22 23:59 | disposition home or self-care (01) ==
LOC: LAB.DROPOF 14:32
PROVIDERS: PCP Nurse Practitioner Family; Visit Provider Nurse Practitioner Family
DX: J02.9 Acute pharyngitis, unspecified (principal)
CPT/HCPCS: 87631

== ENCOUNTER 2024-07-17 07:54 | Outpatient (CLI) | payer BC, SELFPAY ==
--- OUTSIDE RECORDS SUMMARY | 2024-07-17 07:56 | XMS_ITS ---
Care Plan - [facility], [facility] Created on: July 17, 2024 Christy Elodeidre Hainesle : 1985 Sex: Female Author Organization [facility], [facility] Address [address] [place] [id number] Phone Care Team Providers Care Supervisor Hide House Name Role Phone SELMA ELDRIDGE Unavailable [phone] Julieta SWANSON, Karel Amador Unavailable [phone]
--- OUTSIDE RECORDS SUMMARY | 2024-07-17 07:56 | XMS_ITS ---
Author Organization [facility] Address [address] [place] [address] Phone Care Team Providers Care Dresser Tender Name Role Phone SELMA ELDRIDGE Unavailable [phone] Karel Rendon MD Unavailable [phone] Problems Includes: Active, inactive, and resolved Problems All Visits Onset Date Resolved Date Provider Condition S tatus Joint Pain, Localized in the Left Shoulder 05/12/2024 Theodore Ly MD Active Last Documented On 5 10:21AM ; [facility] Plan of Treatment Pending Tests Order Diagnosis Results Due Ordering P rovider Therapy - Physical Therapy Shoulder Pain in left shoulder 05/12/24 Theodore corrales MD Last Documented On 5 10:51AM ; [facility] Instructions to patient Lose weight Last Documented On 11:26AM ; [facility] Assessments Includes: Assessments for all patient encounters Findings Encounter Date Overweight Physician Specified with Theodore Ly MD 05/12/2024 Last Documented On 5 1:16PM ; [facility] Instructions Includes: Instructions for all patient encounters Instructions to patient Lose weight Last Documented On 5 11:26AM ; [facility] Medical Equipment - Implanted Devices Includes: Current and historical Devices No Medical Equipment Recorded Medications Includes: Current and historical Medications Current Medications (continue as prescribed) Amoxicillin Powder 05/12/2024 Provider: Diagnosis: Last Documented On 11:05AM By Claudio Horowitz ; [facility] Metoprolol Succinate ER 25 M G Oral Tablet Extended Release 24 Hour 04/15/2024 Provider: SELMA ELDRIDGE Diagnosis: Last Documented On 11:05AM By Claudio Horowitz ; [facility] Medications Administered Includes: Administered Medications in patient's chart No Administered Medications Recorded Vital Signs Includes: Vital Signs from 07/18/2023 through 07/17/2024 Vital Name 05/12/2024 10:27A Height (in) 66 Weight (lb) 242 Body Mass Index 39.1 Body Surface Area 2.2 Pain Level 4 Note: clw Last Documented: On 05/12/2024 10:29A M ; [facility] Results Includes: Results from 07/18/2023 through 07/17/2024 No Results Recorded For Specified Dates History of Present Illness History of Present Illness not supported for this document type No History of Present Illness Recorded Social History Description Last Updated Caffeine use 05/12/2024 Last Documented On 1:16PM ; [facility] Exercising regularly 05/12/2024 Last Documented On 1:16PM ; [facility] No recent change in diet 05/12/2024 Last Documented On 1:16PM ; [facility] Not a current smoker. 05/12/2024 Last Documented On 1:16PM ; [facility] Not using alcohol 05/12/2024 Last Documented On 1:16PM ; [facility] Not using drugs 05/12/2024 Last Documented On 1:16PM ; [facility] Smoking Status Unknown Procedures and Surgical History Includes: Procedures from 07/18/2023 through 07/17/2024 Procedures Code Diagnosis Performing Provider Service Location Service Date PT Eval - Mod - Complexity (GP) 33329 Superior glenoid labrum lesion of left shoulder, init zeenat Tellez PT [facility] 05/20/2024 Last Documented On 5 4:02PM ; [facility] THERAPEUTIC ACTIVITIES (GP) 14236 Superior glenoid labrum lesion of left shoulder, init zeenat Tellez PT [facility] 05/20/2024 Last Documented On 5 4:02PM ; [facility] Surgical History Last Updated History of History of Gallbladder 2024 Last Documented On 5 1:16PM ; [facility] Past Surgical History: c section ~tubal ligation 05/12/2024 Last Documented On 5 1:16PM ; [facility] Medical History Includes: Medical History in patient's chart Description Last Updated History of Hypertension 05/12/2024 Last Documented On 5 1:16PM ; [facility] History of Irregular Heartbeat Last Documented On 5 1:16PM ; [facility] Family History Includes: Family History in patient's chart Description Last Updated Family history of cancer 05/12/2024 Last Documented On 5 1:16PM ; [facility] Family history of systemic hypertension 05/12/2024 Last Documented On 5 1:16PM ; [facility] Stroke / Seizures 05/12/2024 Last Documented On 1:16PM ; [facility] Review of Systems Review of Systems not supported for this document type No Review of Systems Recorded Mental Status Description No anxiety Functional Status No Functional Status Recorded Physical Exam Physical Exam not supported for this document type No Physical Exam Recorded Allergies Includes: Active, inactive, and resolved Allergies No Known Allergies Encounters Includes: Encounters from 07/18/2023 through 07/17/2024 Encounter Provider Location Date Check-In Time Check-Out Time Diagnosis Physician Specified Theodore Ly MD [facility] 05/12/19 10:13AM 10:53AM Overweight Insurance Includes: Active Insurance Policies Plan Name Member ID Group # Subscriber Relationship Effect toni Dates 1 - [facility] [id number] 1 Elo Harrison Self Clinical Notes Includes: Signed Clinical Notes starting from 03/01/2022 * Progress note Date Encounter Last Documented by 05/12/2024 Physician Specified Anupam monteiro on 05/12/2024; 1:16 PM, Theodore Ly MD; [facility] Active Problems & Conditions - Joint Pain, Localized in the Left Shoulder Chief Complaint The Chief Complaint is: Left shoulder pain. Referred Here Referred by pcp. History of Present Illness Elo Harrison is a 39 year old female. - Symptoms worse with exercise. - Allergy list reviewed - Problem list reviewed - Medication list reviewed - Previous history of new onset pain 11/2023 Injury is not work related or an automotive accident - Stabbing pain - Pain is occasional (25% of the time) - Patient pain level from 1-10: 2 - No previous treatment. - - Review of medications documented Patient with some pain left side of her neck and shoulder radiating to the armpit and down the back of the arm occasionally to the pinky and small and ring finger in a sharp sharp in nature no tingling that she notes intermittent pain worse repetitive activities MRI was done which showed a type 2 slap tear but she is not describing any symptoms consistent with labral pathology at this point based on history she does quite a bit of sitting at work Current Medication - Amoxicillin Powder 0 days, 0 refills - Metoprolol Succinate ER 25 MG Oral Tablet Extended Release 24 Hour 30 days, 0 refills Past Medical/Surgical History Diagnoses: Irregular Heartbeat Hypertension Surgical: - Past Surgical History: c section tubal ligation - History of Gallbladder Social History Not a current smoker. Current diet: No recent change in diet. Caffeine use: Caffeine use. Alcohol: Not using alcohol. Drug Use: Not using drugs. Habits: Exercising regularly. Allergies - No Known Allergies Family History Cancer Stroke / Seizures Systemic hypertension Review Of Systems Systemic: Not feeling tired, no recent weight loss, and no recent weight gain. Head: No headache and no sinus pain. Eyes: No vision problems and no Cataracts. Glasses/Contacts. No Glaucoma. Otolaryngeal: No hearing loss and no tinnitus. Cardiovascular: No chest pain or discomfort, no palpitations, no Hypertension, and no High Cholesterol. Pulmonary: No daytime asthma symptoms and no chronic cough. No wheezing. Gastrointestinal: No heartburn and no abdominal pain. No Indigestion, no Peptic Ulcer, no GI Stomach Bleed, no Ulcers, and no Acid Reflux. Endocrine: No hot flashes, no muscle weakness, no Diabetes, no Hypothyroid, and no Hyperthyroid. Hematologic: No easy bleeding, no tendency for easy bruising, and no Anemia. Musculoskeletal: No Arthritis and no lower back pain. No soft tissue swelling and no localized joint pain. Neurological: No dizziness, no convulsions, and no numbness. Psychological: No anxiety, no emotional lability, no depression, and no insomnia. Not crying for no reason. Skin: No dry skin. No Ulcers, no Scars, and no rash. Allergic and Immunologic: No complaint of seasonal allergic reaction. Physical Findings - Vitals taken 05/12/2024 10:27 am clw Height 66 in 48 - 78 Weight 242 lbs 98 - 183 Body Mass Index 39.1 kg/m2 Body Surface Area 2.2 m2 Pain Level 4 Cervical alignment shows increased cervical lordosis in significant spasm in the trapezius and tightness in the PEG major tendons on both shoulders with a slight scapular winging and difficulty getting her in the normal position labral signs are not present rotator cuff strength is intact and normal Spurling sign does reproduce some of her pain no myelopathic under no Assessment - Overweight Previous Tests Imaging: MRI Scan: An MRI was performed 03/17/2024 [facility]. Counseling/Education - Tobacco non-user - Use of tobacco assessment performed - Lose weight Plan StartCited - Pain in left shoulder Therapy/Physical Therapy: Shoulder Instructions: See PT order attached EndCited Patient has a SLAP tear type 2 but I do not think it is related to her symptoms and we would not be a good idea to treat this surgically she has poor mechanics with a cervicalgia related to cervical radiculitis needs to work on her alignment muscle spasm in nerve flossing as well as mobilization of the nerve we send her to our therapist who specializes in this to get her on a good program in in addition to traction if needed we will see her back in 6 weeks make sure she is showing improvement Notes This dictation was done with voice recognition software and may contain errors and omissions. Care Team - SELMA ELDRIDGE Health Reminders - Assess BMI satisfied 05/12/2024. - Assess Tobacco Use satisfied 05/12/2024. - Follow Up Plan BMI Management satisfied 05/12/2024.
--- OUTSIDE RECORDS SUMMARY | 2024-07-17 07:57 | XMS_ITS | Clinical Summary ---
Author Organization [facility] , [facility] Address [address] [place] [address] Phone Care Team Providers Care Stereo Map Plotter Operator Name Role Phone SELMA ELDRIDGE Unavailable [phone] Karel Rendon MD Unavailable [phone] Reason for Visit and Chief Complaint The Chief Complaint is: left shoulder pain Problems Includes: Problems addressed during this encounter and other active Problems Current Visit Onset Date Resolved Date Provider Amira meza Status Joint Pain, Localized in the Left Shoulder 05/12/2024 Theodore Ly MD Active Last Documented On 10:21AM ; [facility], [facility] Plan of Treatment Patient has a SLAP tear type 2 [...] weeks make sure she is showing improvement - Last Documented On 05/12/2024 1:16PM ; [facility], [facility] Pending Tests Order Diagnosis Results Due Ordering P leidy Therapy - Physical Therapy Shoulder Pain in left shoulder 05/12/24 Theodore corrales MD Last Documented On 10:51AM ; [facility], [facility] Instructions to patient Lose weight Last Documented On 11:26AM ; [facility], [facility] Assessments Includes: Assessments from this encounter Findings - Overweight - Last Documented On 05/12/2024 1:16PM ; [facility] Instructions Includes: Instructions from this encounter Instructions to patient Lose weight Last Documented On 11:26AM ; [facility], [facility] Medical Equipment - Implanted Devices Includes: Current Devices No Medical Equipment Recorded Medications Includes: Medications discussed during this encounter and other current Medications Current Medications (continue as prescribed) Amoxicillin Powder 05/12/2024 Provider: Diagnosis: Last Documented On 11:05AM By Claudio Horowitz ; [facility], [facility] Metoprolol Succinate ER 25 M G Oral Tablet Extended Release 24 Hour 04/15/2024 Provider: SELMA ELDRIDGE Diagnosis: Last Documented On 11:05AM By Claudio Horowitz ; [facility], [facility] Medications Administered Includes: Administered Medications from this encounter No Administered Medications Recorded Vital Signs Includes: Vital Signs from this encounter Vital Name 05/12/2024 10:27A Height (in) 66 Weight (lb) 242 Body Mass Index 39.1 Body Surface Area 2.2 Pain Level 4 Note: clw Last Documented: On 05/12/2024 10:29A M ; [facility], [facility] Results Includes: Results discussed during this encounter No Results Recorded For Specified Dates History of Present Illness Includes: History of Present Illness from this encounter HPI Elo Harrison is a 39 year old [...] quite a bit of sitting at work Social History Description Last Updated Caffeine use 05/12/2024 Last Documented On 1:16PM ; [facility], [facility] Exercising regularly 05/12/2024 Last Documented On 1:16PM ; [facility] No recent change in diet 05/12/2024 Last Documented On 1:16PM ; [facility] Not a current smoker. 05/12/2024 Last Documented On 1:16PM ; [facility] Not using alcohol 05/12/2024 Last Documented On 1:16PM ; [facility] Not using drugs 05/12/2024 Last Documented On 1:16PM ; [facility] Smoking Status Unknown Procedures and Surgical History Includes: Procedures from this encounter Procedures Code Diagnosis Performing Provider Service L ocation Service Date an MRI was performed 03/17/2024 [facility] [id number] Last Documented On 11:24AM ; [facility] Surgical History Last Updated History of History of Gallbladder 2024 Last Documented On 1:16PM ; [facility] D[facility] Past Surgical History: c section ~tubal ligation 05/12/2024 Last Documented On 1:16PM ; [facility] Medical History Includes: Medical History addressed during this encounter Description Last Updated History of Hypertension 05/12/2024 Last Documented On 1:16PM ; [facility] History of Irregular Heartbeat Last Documented On 1:16PM ; [facility] Family History Includes: Family History addressed during this encounter Description Last Updated Family history of cancer 05/12/2024 Last Documented On 1:16PM ; [facility] Family history of systemic hypertension 05/12/2024 Last Documented On 1:16PM ; [facility] D[facility] Stroke / Seizures 05/12/2024 Last Documented On 1:16PM ; [facility] Review of Systems Includes: Review of Systems from this encounter Systemic: Not feeling tired, no recent weight [...] Immunologic: No complaint of seasonal allergic reaction. Mental Status Includes: Mental Status from this encounter Description No anxiety Functional Status Includes: Functional Status from this encounter No Functional Status Recorded Physical Exam Includes: Physical Exam from this encounter Allergies Includes: Active Allergies No Known Allergies Encounters Encounter Provider Location Date Check-In Time Check-Out Time Diagnosis Physician Specified Theodore Ly MD [facility] 05/12/19 10:13AM 10:53AM Overweight Insurance Includes: Active Insurance Policies Plan Name Member ID Group # Subscriber Relationship Effect toni Dates - [facility] [id number] 1 Elo Harrison Self Clinical Notes Includes: Clinical Notes from this encounter * Progress note Date Encounter Last Documented by 05/12/2024 Physician Specified Last documen thania on 05/12/2024; 1:16 PM, Theodore Ly MD; [facility], [facility] Active Problems & Conditions - Joint Pain, [...] MRI Scan: An MRI was performed 03/17/2024 [facility]. Counseling/Education - Tobacco non-user - Use of [...] - Follow Up Plan BMI Management satisfied 05/12/2024."
[2024-07-17 08:31] LABS: Basophils % 0.3 % (0.1-2.0); Eosinophils # 0.1 Kmm3 (0.0-0.4); Hematocrit 40.3 % (37.0-47.0); Hemoglobin 14.1 g/dL (12.2-16.2); Lymphocytes # 1.4 K/mm3 (0.7-4.5); Lymphocytes % 22.8 % (10-50); Mean Corpuscular Hemoglobin 30.5 pg (27.0-31.2); Mean Platelet Volume 10.2 fl (7.4-10.4); Monocytes # 0.4 K/mm3 (0.1-1.0); Monocytes % 5.7 % (1.7-9.3); Neutrophils # 4.3 K/mm3 (1.8-7.8); Nucleated Red Blood Cells # 0 10^3/uL; Nucleated Red Blood Cells % 0 %; Platelet Count 216 K/mm3 (142-424); Red Blood Count 4.63 M/mm3 (4.20-5.40); Red Cell Distribution Width 11.4 % (11.5-17.5); White Blood Count 6.1 K/mm3 (4.8-10.8)
[2024-07-17 09:39] LABS: Alanine Aminotransferase 19 U/L (12-78); Alkaline Phosphatase 74 U/L (38-126); Anion Gap 8.1 mEq/L (5-15); Aspartate Amino Transferase 27 U/L (14-36); Bilirubin,Direct 0.1 mg/dl (0.0-0.4); Bilirubin,Indirect 0.6 mg/dL (0.0-0.9); Bilirubin,Total 0.7 mg/dl (0.2-1.3); Bilirubin,Unconjugated 0.6 mg/dL (0.0-1.1); Blood Urea Nitrogen 12 mg/dl (7-17); Carbon Dioxide 26 mmol/L (22.0-30.0); Chloride 107 mmol/L (98-107); Chol/HDL Ratio 2.7 (1-3.5); Cholesterol 126 mg/dl (140-200); Estimated Glomerular Filt Rate 110 ml/min (>60); GFR (African American) 133 ML/MIN (>60); Glucose 94 mg/dl (74-100); HDL Cholesterol 47 mg/dl (40-60); Magnesium 1.8 mg/dl (1.6-2.3); Potassium 4.1 mmoL/L (3.5-5.1); Sodium 137 mmol/L (136-145); Total Protein,Serum 6.5 g/dl (6.3-8.2); Triglycerides 42 mg/dl (30-150); VLDL Cholesterol 8 mg/dL (0-40)
[2024-07-17 09:50] LABS: Direct LDL Cholesterol 63.88 mg/dL (100-129)
[2024-07-17 10:08] LABS: Thyroid Stimulating Hormone 1.31 uIU/mL (0.465-4.68)
== END 2024-07-17 23:59 | disposition home or self-care (01) ==
LOC: LAB 07:55
PROVIDERS: PCP Nurse Practitioner Family; Visit Provider Physician Assistant
DX: R42 Dizziness and giddiness (principal); R00.2 Palpitations; I10 Essential (primary) hypertension; Z87.891 Personal history of nicotine dependence
CPT/HCPCS: 36415; 80048; 80061; 80076; 83735; 84439; 84443; 85025

== ENCOUNTER 2024-08-20 13:54 | Outpatient (RCR) | payer BC, SELFPAY | END 2024-08-20 23:59 | disposition home or self-care (01) | LOC: OT 13:54 | PROVIDERS: Visit Provider Internal Medicine Cardiovascular Disease | DX: M54.2 Cervicalgia (principal); M25.512 Pain in left shoulder ==

== ENCOUNTER 2024-08-31 14:48 | Outpatient (RCR) | payer BC, SELFPAY | END 2024-08-31 23:59 | disposition home or self-care (01) | LOC: PT 14:48 | PROVIDERS: Visit Provider Internal Medicine Cardiovascular Disease | DX: M54.2 Cervicalgia (principal) | CPT/HCPCS: 97162 ==

== ENCOUNTER 2024-09-24 10:00 | Outpatient (RCR) | payer BC, SELFPAY | END 2024-09-24 23:59 | disposition home or self-care (01) | LOC: PT 10:00 | PROVIDERS: Visit Provider Internal Medicine Cardiovascular Disease | DX: M54.2 Cervicalgia (principal); M25.512 Pain in left shoulder | CPT/HCPCS: 97110 ==

== ENCOUNTER 2024-10-12 12:17 | Outpatient (CLI) | payer BC, SELFPAY ==
--- NOTE | 2024-10-12 12:20 | XR_ITS ---
FINAL REPORT CLINICAL HISTORY: chest pain, coughing and congestion FINDINGS: PA and lateral views of the chest were obtained. There is no prior exam for comparison. The cardiac and mediastinal silhouettes are within normal limits. The lungs are clear. There is no pleural effusion or pneumothorax. No acute osseous abnormality is identified. IMPRESSION: No radiographic evidence of acute cardiac or pulmonary disease. Reviewed, Interpreted and Dictated by Marjorie Gasca MD Transcribed by OVIDIO Heath Authenticated and [facility] [place] [place]
== END 2024-10-12 23:59 | disposition home or self-care (01) ==
LOC: RAD 12:18
PROVIDERS: PCP Nurse Practitioner Family; Visit Provider Nurse Practitioner Family
DX: I49.1 Atrial premature depolarization (principal); R00.0 Tachycardia, unspecified
CPT/HCPCS: 71046; 93225; 93227

== ENCOUNTER 2024-10-21 12:44 | Outpatient (CLI) | payer BC, SELFPAY ==
[2024-10-21 13:07] LABS: Hematocrit 41.9 % (37.0-47.0); Hemoglobin 13.9 g/dL (12.2-16.2); Immature Granulocytes % 0.1 %; Mean Corpuscular HGB Conc 33.2 g/dL (31.8-35.4); Mean Corpuscular Hemoglobin 29.4 pg (27.0-31.2); Mean Corpuscular Volume 88.6 fl (81-99); Nucleated Red Blood Cells % 0 %; Platelet Count 240 K/mm3 (142-424); Red Blood Count 4.73 M/mm3 (4.20-5.40); Red Cell Distribution Width-SD 36.7 fL; White Blood Count 7.4 K/mm3 (4.8-10.8)
[2024-10-21 13:31] LABS: Alanine Aminotransferase 20 U/L (12-78); Albumin Level 4.4 g/dl (3.5-5.0); Albumin/Globulin Ratio 1.9 (1.1-1.8); Alkaline Phosphatase 92 U/L (38-126); Anion Gap 13.6 mEq/L (5-15); Aspartate Amino Transferase 38 U/L (14-36); Bilirubin,Total 0.5 mg/dl (0.2-1.3); Blood Urea Nitrogen 12 mg/dl (7-17); Calcium 8.8 mg/dl (8.4-10.2); Carbon Dioxide 23 mmol/L (22.0-30.0); Chloride 105 mmol/L (98-107); Creatinine,Serum 0.50 mg/dl (0.52-1.04); Estimated Glomerular Filt Rate 136 ml/min (>60); GFR (African American) 165 ML/MIN (>60); Globulin 2.3 g/dL (1.3-3.2); Glucose 108 mg/dl (74-100); Magnesium 1.8 mg/dl (1.6-2.3); Potassium 4.6 mmoL/L (3.5-5.1); Sodium 137 mmol/L (136-145); Total Protein,Serum 6.7 g/dl (6.3-8.2)
[2024-10-21 14:01] LABS: Thyroid Stimulating Hormone 0.97 uIU/mL (0.465-4.68)
[2024-10-24 10:12] LABS: Lyme B. burgdorferi PCR Blood Negative (Negative)
[2024-10-25 23:19] LABS: O215-IgE Alpha-Gal < 0.10 kU/L (Class 0)
== END 2024-10-21 23:59 | disposition home or self-care (01) ==
LOC: LAB 12:44
PROVIDERS: PCP Nurse Practitioner Family; Visit Provider Nurse Practitioner Family
DX: I10 Essential (primary) hypertension (principal)
CPT/HCPCS: 36415; 80053; 82785; 83735; 84443; 85025; 86003; 86008; 87476

== ENCOUNTER 2024-10-28 09:24 | Outpatient (CLI) | payer BC, SELFPAY ==
--- NOTE | 2024-10-28 09:30 | CA_ITS ---
FINAL REPORT TECHNIQUE: Spectral and color Doppler exam CLINICAL HISTORY: HTN FINDINGS: DOPPLER RENAL VESSELS Intrarenal resistive indices on the right are 0.58-0.65, normal . Intrarenal resistive indices on the left are 0.57-0.61, normal . Renal size is normal and symmetric. Right main renal artery systolic velocity: 159 cm/sec. Aortic-right renal artery flow velocity ratio: 1.82 COMMENT: No evidence of hemodynamically significant renal artery stenosis . Left main renal artery systolic velocity: 1.62 cm/sec. Aortic-left renal artery flow velocity ratio: 1.84 COMMENT: No evidence of hemodynamically significant renal artery stenosis . IMPRESSION: No evidence of hemodynamically significant renal artery stenosis CTA or gadolinium-enhanced MR may be considered as a more sensitive exam. Alternatively noncontrast MRI may be considered for assessing main renal arteries for stenosis as a more sensitive exam if the patient has renal insufficiency. Reviewed, Interpreted and Dictated by Clemente Nguyen MD Transcribed by Judy Gay Authenticated and . [facility]
== END 2024-10-28 23:59 | disposition home or self-care (01) ==
LOC: RT 09:25
PROVIDERS: PCP Nurse Practitioner Family; Visit Provider Nurse Practitioner Family
DX: I10 Essential (primary) hypertension (principal)
CPT/HCPCS: 93976

== ENCOUNTER 2024-11-30 14:34 | Outpatient (CLI) | payer BC, SELFPAY ==
--- NOTE | 2024-11-30 15:00 | MR_ITS ---
FINAL REPORT TECHNIQUE: Multiplanar MR without contrast CLINICAL HISTORY: Cervical radiculopathy COMPARISON: None FINDINGS: Limited images of the posterior fossa are unremarkable. Alignment is normal. Cervical spinal cord shows normal signal and contour. C2-3: Unremarkable C3-4: Unremarkable C4-5: Small central disc protrusion mildly contacts central spinal canal. No canal stenosis. C5-6: Mild annular disc bulge without canal stenosis C6-7: Small central disc protrusion without canal stenosis C7-T1: Unremarkable IMPRESSION: Small disc protrusions at C4-5 and C6-7. Reviewed, Interpreted and Dictated by Clemente Nguyen MD Transcribed by Judy Gay Authenticated and [facility]
== END 2024-11-30 23:59 | disposition home or self-care (01) ==
LOC: RAD 14:35
PROVIDERS: PCP Nurse Practitioner Family; Visit Provider Nurse Practitioner Family
DX: M50.121 Cervical disc disorder at C4-C5 level with radiculopathy (principal); M50.123 Cervical disc disorder at C6-C7 level with radiculopathy
CPT/HCPCS: 72141

== ENCOUNTER 2025-01-11 15:00 | Outpatient (RCR) | payer BC, SELFPAY ==
--- NOTE | 2024-12-31 09:53 | HMH.PTOPEV ---
PT Evaluation Rehab PT Outpatient Evaluation Start: 12/31/24 07:52 Freq: Status: Active Protocol: Document 12/31/24 07:52 OWEN (Rec: 12/31/24 08:53 OWEN [id number]) E-signed By Eduardo Toro, PT Outpatient Therapy Subjective History Subjective History Pt is a 39 yof who is referred to [facility] outpatient PT with complaints of cervical pain, headaches and L scapular pain. Pt reports that she first began having neck pain approximately 1 year ago but it resolved mostly on its own. Pt reports that approximately 1 month ago, she began having neck pain again with associated headaches. Pt reports that this began around the same time that she had a tooth pulled. Pt reports that her neck pain and headaches is usually worst at the end of a work day. 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 Reports that she has difficulty looking down at her computer, doing desk work and reading. Pt reports that there are times at the end of the day where she feels that she has to support her head and it will give her some relief. Pt reports that she went on vacation last week, and her symptoms are actually improved some this week. Pt recently had an MRI, which showed small disc protrusions at C4-C5 and C6-C7. However, patient denies numbness and tingling or any other radicular symptoms. 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 Chief Complaint Pain,Stiff Symptom Type Ache,Dull Symptoms Relieved By Brace/Support,OTC Meds Symptoms Aggravated Sitting,Standing By Prior Functional None Limitations Current Functional Lifting,Desk Work/Reading,Standing,Sitting Limitations Symptom Description Intermittent,Activity Dependent Level of pain today 0 (0-10) Pain scale - at its 0 best (0-10) Pain scale - at its 7 worst (0-10) Cervical Eval Palpation Cervical Muscles L Cervical Paraspinal,L CT Junction,L Upper Trapezius,L Thoracic Paraspinals Cervical/Thoracic Tenderness,Trigger Point Palpation Findings Posture Head/C-Spine Posture Flexed Sitting Position Head/C-Spine Posture Flexed Standing Position Flexibility Deficits Upper Trapezius (L) Moderate Tightness Muscle Length Pectoralis Minor (L) Moderate Tightness Muscle Length Passive Joint Mobility Cervical PIVM Dec: L C2/3 L C3/4 L C4/5 AROM Cervical Spine 15 Extension Active Range of Motion ( degrees) Cervical Spine 50 Flexion Active Range of Motion (degrees) Cervical Spine Right 25 Lateral Flexion Active Range of Motion (degrees) Cervical Spine Left 40 Lateral Flexion Active Range of Motion (degrees) Cervical Spine Right 50 Rotation Active Range of Motion ( degrees) Cervical Spine Left 60 Rotation Active Range of Motion ( degrees) DTR Rt Biceps 2+ Lt Biceps 2+ Rt Brachioradialis 2+ Lt Brachioradialis 2+ Rt Triceps 2+ Lt Triceps 2+ Altered Sensation Bilateral Comment Intact to LT symmetrically Special Test C-Spine Foraminal Negative Left,Negative Right Compression ( [place]) Test C-spine Verterbral Left P/A [place] Accessory Movements that Elicit Symptoms C-Spine Foraminal Negative Distraction Test C-Spine Compression Negative Left,Negative Right Test C-Spine Swallowing Negative Left Test Shoulder Abduction Negative Left,Negative Right Relief Test Shoulder Brachial Negative Left,Negative Right Plexus Stretch Test Neck Disability Index Neck Disability Index Section 1: Pain The pain is very mild at moment Intensity Section 2: Personal I can look after myself normally without causing extra Care (washing, pain dressing, etc.) Section 3: Lifting I can lift heavy weights without extra pain Section 4: Reading I can read as much as I want to with slight pain in my neck Section 5: Headaches I have moderate headaches, which come infrequently Section 6: I can concentrate fully when I want to with no Concentration difficulty Section 7: Work I can do as much work as I want to Section 8: Driving I can drive my car as long as I want with slight pain in my neck Section 9: Sleeping I have no trouble sleeping Section 10: I am able to engage in all my recreation activities Recreation with some pain in NDI Score 6 Miscellaneous Dx PT Eval Objective Objective MMT: - L rhomboid: 3/5 - L LT: 2+/5 DCNF Endurance Test: 9 s with pain FRT: + with tightness and pain to the right. Outpatient Therapy Assessment Impairments Problems/ Palpation Tenderness,Impaired Range of Motion,Impaired Impairmments Strength,Impaired Sitting,Impaired Work Activities, Subjective C/O Pain Prognosis Rehab Potential Good Clinical Impression Consistent with Yes Diagnosis Consistent with Cervicogenic Headache G44.86 Additional details: Pt demonstrates signs and symptoms consistent with cervicogenic headache. Pt demonstrates associated motor control deficits, thoracic spine mobility deficits, and scapulothoracic weakness. Skilled PT is indicated for this pt. PT Patient Goals PT Patient Goals PT Short Term In 3 weeks: Patient Goals 1. Patient will report a 48 hour average pain of 5/10 on the numeric pain rating scale to demonstrate improvement in quality of life and increased functional capacity. 2. Patient will improve L rhomboid and Lower trap strength upon manual muscle testing to 4/5 facilitate increased spinal stabilization, cervical support and improved functional capabilities. 3. Patient will demonstrate a reduction in trigger point sensitivity to Grade 2 with manual palpation to improve comfort during activity and soft tissue mobility. 4. Patient will improve cervical ROM by 5 degrees without pain into right LF, Rot Rot and Cervical extension to demonstrate improved movement patterns with functional mobility and ADLs. 5. Pt will improve performance on the deep cervical neck flexor endurance test to 15 seconds without pain to demonstrate improved postural control and decreased neck pain with prolonged sitting. 6. Pt will demonstrate HEP compliance by completing prescribed HEP 4-5x/week. 7. Pt will improve NDI score to 4 to demonstrate improvement functional capabilities and improved QOL. PT Snf Patient In 6 weeks: Goals 1. Patient will report a 48 hour average pain of 2-3/10 on the numeric pain rating scale to demonstrate improvement in quality of life and increased functional capacity. 2. Patient will improve L rhomboid and Lower trap strength upon manual muscle testing to 4+/5 facilitate increased spinal stabilization and improved functional capabilities. 3. Patient will demonstrate a reduction in trigger point sensitivity to Grade 0-1 with manual palpation to improve comfort during activity and soft tissue mobility. 4. Patient will improve cervical ROM by 10-15 degrees, without pain, into R LF, R Rot and R extension to demonstrate improved movement patterns with functional mobility and ADLs. 5. Pt will improve performance on the deep cervical neck flexor endurance test to 30 seconds without pain to demonstrate improved postural control and decreased neck pain with prolonged sitting. 6. Pt will demonstrate symmetrical and pain-free movement during the Flexion Rotation Test in order to demonstrate improved A-A mobility to assist with ADLs, such as driving. 7. Pt will improve NDI score to 2 to demonstrate improvement functional capabilities and improved QOL. Outpatient Therapy Plan of Care Treatment Plan May Include Therapeutic Exercise Yes Including Home Exercise Program Manual Therapy Yes Techniques Neuromuscular Re- Yes education Therapeutic Yes Activities to Return to Previous Functional/Work Level Dry Needling Yes Thermal Modalities Yes Electrical Yes Stimulation Iontophoresis Yes Massage Yes Manual Lymphatic Yes Drainage Eval/Re-Eval Yes Frequency Times per week 2 Duration Number of Weeks 6 Addendums This patient is a No candidate for social or vocational rehab ? Patient/Guardian Yes verbally acknowledges understanding of treatment program and consents to further treatment? Patient/Guardian Yes verbally acknowledges understanding of diagnosis, prognosis and goals for treatment? Eval Complexity PT Charges 31201 - Moderate Complexity Shoulder/Elbow Eval Shoulder Objective Measurements Elbow Objective Measurements PHYSICIAN CERTIFICATION: I certify the specified therapy services for Elo Harrison are required, authorized, and reviewed every 30 days.
== END 2025-01-11 23:59 | disposition home or self-care (01) ==
LOC: PT 15:00
PROVIDERS: Visit Provider Nurse Practitioner Family
DX: M25.512 Pain in left shoulder (principal); M54.2 Cervicalgia
CPT/HCPCS: 97110; 97162

== ENCOUNTER 2025-02-10 15:00 | Outpatient (RCR) | payer BC, SELFPAY ==
--- NOTE | 2025-02-01 16:03 | HMH.RHREAS ---
Rehab Reassessment Rehab OP Re-assessment Start: 01/18/25 16:01 Freq: Status: Active Protocol: Document 02/01/25 15:53 LESLIE (Rec: 02/01/25 16:03 PHORNE [id number]) E-signed By Nael García, PT Neck Disability Index Neck Disability Index Section 1: Pain The pain is very mild at moment Intensity Section 2: Personal I can look after myself normally without causing extra Care (washing, pain dressing, etc.) Section 3: Lifting I can lift heavy weights without extra pain Section 4: Reading I can read as much as I want with moderate pain in my neck Section 5: Headaches I have moderate headaches, which come infrequently Section 6: I can concentrate fully when I want to with no Concentration difficulty Section 7: Work I can do as much work as I want to Section 8: Driving I can drive my car as long as I want with slight pain in my neck Section 9: Sleeping I have no trouble sleeping Section 10: I am able to engage in all my recreation activities Recreation with some pain in NDI Score 7 Rehab Re-assessment Subjective Subjective Pt reports pain in her neck has been 4/10 average over the past 48 hours. She reports less pain and weakness around her L shoulder blade and mainly feels heaviness at the base of her skull. She reports she has improved her working conditions with better ergonomic desk set-up. Overall she feels much better, but continues to have pain with prolonged work activities. Objective Objective Notes AROM c-spine (in deg): FLEX 0-50, EXT 0-50, R SB 0-45, L SB 0-45, R ROT 0-70, L ROT 0-70 Pain: 4/10 in neck over past 48 hours. TTP: Cervical paraspinals 1/4 B. Assessment Progress Assessment Progressing as Expected Assessment Notes Pt has been present for 5 treatment session since her initial evaluation. She has shown significant improvement in AROM of cervical spine and in average pain over a 48 hr period. These results have improved her ability to perform all work activities. However, she continues to have discomfort and is not fully able to perform all recreational activities and ADLs. Skilled therapy remains indicated to continues to improve ability to perform all ADL's in a n effort to return pt to [facility]. All goals remain active unless they have been met as designated. PT Patient Goals PT Short Term In 3 weeks: Patient Goals 1. Patient will report a 48 hour average pain of 5/10 on the numeric pain rating scale to demonstrate improvement in quality of life and increased functional capacity. (MET) 2. Patient will improve L rhomboid and Lower trap strength upon manual muscle testing to 4/5 facilitate increased spinal stabilization, cervical support and improved functional capabilities. 3. Patient will demonstrate a reduction in trigger point sensitivity to Grade 2 with manual palpation to improve comfort during activity and soft tissue mobility. 4. Patient will improve cervical ROM by 5 degrees without pain into right LF, Rot Rot and Cervical extension to demonstrate improved movement patterns with functional mobility and ADLs. (MET) 5. Pt will improve performance on the deep cervical neck flexor endurance test to 15 seconds without pain to demonstrate improved postural control and decreased neck pain with prolonged sitting. 6. Pt will demonstrate HEP compliance by completing prescribed HEP 4-5x/week. 7. Pt will improve NDI score to 4 to demonstrate improvement functional capabilities and improved QOL. 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 Patient will report a 48 hour average pain of 2-3/10 on the numeric pain rating scale to demonstrate improvement in quality of life and increased functional capacity. 2. Patient will improve L rhomboid and Lower trap strength upon manual muscle testing to 4+/5 facilitate increased spinal stabilization and improved functional capabilities. 3. Patient will demonstrate a reduction in trigger point sensitivity to Grade 0-1 with manual palpation to improve comfort during activity and soft tissue mobility. 4. Patient will improve cervical ROM by 10-15 degrees, without pain, into R LF, R Rot and R extension to demonstrate improved movement patterns with functional mobility and ADLs. 5. Pt will improve performance on the deep cervical neck flexor endurance test to 30 seconds without pain to demonstrate improved postural control and decreased neck pain with prolonged sitting. 6. Pt will demonstrate symmetrical and pain-free movement during the Flexion Rotation Test in order to demonstrate improved A-A mobility to assist with ADLs, such as driving. 7. Pt will improve NDI score to 2 to demonstrate improvement functional capabilities and improved QOL. Plan Plan Continued pt treatment may include any or all of the following interventions in order to improve functional outcomes and aid pt improvement in QOL: Frequency of Therapy 1 x/wk Duration of Therapy 4 wks Therapeutic Exercise Yes Including Home Exercise Program Manual Therapy Yes Techniques Neuromuscular Re- Yes education Therapeutic Yes Activities to Return to Previous Functional/Work Level ADL/Self Care Yes Education Thermal Modalities Yes Electrical Yes Stimulation Ultrasound/ Yes Phonophoresis Massage Yes Eval/Re-Eval Yes Time and Billing Re-Eval Time 16 Re-Eval Billing 0 Units Charge for PT No reassessment? PHYSICIAN CERTIFICATION: I certify the specified therapy services for Elo Harrison are required, authorized, and reviewed every 30 days.
== END 2025-02-10 23:59 | disposition home or self-care (01) ==
LOC: PT 15:00
PROVIDERS: Visit Provider Nurse Practitioner Family
DX: M54.2 Cervicalgia (principal); M25.512 Pain in left shoulder
CPT/HCPCS: 97110

== ENCOUNTER 2025-02-24 15:38 | Outpatient (CLI) | payer BC, SELFPAY ==
--- NOTE | 2025-02-24 16:00 | MM_ITS ---
PROCEDURE INFORMATION: Exam: MG Bilateral Screening 3D Mammography Exam date and time: 02/24/2025 3:46 PM Age: 39 years old Clinical indication: Screening examination TECHNIQUE: Imaging protocol: Bilateral Screening tomosynthesis and 2D mammography including computer-aided detection (CAD) when performed. COMPARISON: MG MM DIG SCREENING MAMM BI W/CAD 12/19/2023 8:31 AM FINDINGS: MAMMOGRAPHY: Breast composition: There are scattered areas of fibroglandular density. Mass: None. Architectural distortion: None. Calcifications: No suspicious calcifications. Asymmetric density: None. Skin thickening: None. Axillary adenopathy: None. IMPRESSION: No mammographic evidence of malignancy. Annual screening is recommended unless otherwise clinically indicated. ASSESSMENT: BI-RADS Category 1: Negative.
== END 2025-02-24 23:59 | disposition home or self-care (01) ==
LOC: RAD 15:39
PROVIDERS: PCP Nurse Practitioner Family; Visit Provider Nurse Practitioner Obstetrics & Gynecology
DX: Z12.31 Encounter for screening mammogram for malignant neoplasm of breast (principal); R92.323 Mammographic fibroglandular density, bilateral breasts
CPT/HCPCS: 77063; 77067

== ENCOUNTER 2025-03-17 16:00 | Outpatient (RCR) | payer BC, SELFPAY ==
--- NOTE | 2025-03-03 16:34 | [facility].RHREAS ---
Rehab Reassessment Rehab OP Re-assessment Start: 03/03/25 16:02 Freq: Status: Active Protocol: Document 03/03/25 16:08 LESLIE (Rec: 03/03/25 16:34 PHORNE [id number]) E-signed By Nael García, PT Neck Disability Index Neck Disability Index Section 1: Pain The pain is moderate at the moment Intensity Section 2: Personal I can look after myself normally without causing extra Care (washing, pain dressing, etc.) Section 3: Lifting I can lift heavy weights without extra pain Section 4: Reading I can read as much as I want with moderate pain in my neck Section 5: Headaches I have moderate headaches, which come frequently Section 6: I can concentrate fully when I want to with slight Concentration difficulty Section 7: Work I can do as much work as I want to Section 8: Driving I can drive my car as long as I want with slight pain in my neck Section 9: Sleeping My sleep is slightly disturbed (less than 1 hr sleepless) Section 10: I am able to engage in all my recreation activities Recreation with some pain in NDI Score 11 Rehab Re-assessment Subjective Subjective Pt reports, I was doing better, but then I missed some appointments and it started getting worse again. Now I 'm having some more headaches than I was. She reports difficulty with all work and ADL activities due to the increased neck pain. Objective Objective Notes AROM c-spine (in deg): FLEX 0-55, EXT 0-50, R SB 0-45, L SB 0-35, R ROT 0-70, L ROT 0-70 Pain: 6/10 in neck over past 48 hours. TTP: Cervical paraspinals 1/4 B. NDI: 11 this date vs 6 on IE Assessment Progress Assessment Slower Than Expected Assessment Notes Pt has been present for 2 treatment session since her initial evaluation. She has shown significant improvement in AROM of cervical spine overall, but decreased L side bending due to increased muscle tension and pain. These results have improved her ability to perform all work activities. However, she continues to have discomfort and is not fully able to perform all recreational activities and ADLs. Skilled therapy remains indicated to continues to improve ability to perform all ADL's in a n effort to return pt to [facility]. All goals remain active unless they have been met as designated. PT Patient Goals PT Short Term In 3 weeks: Patient Goals 1. Patient will report a 48 hour average pain of 5/10 on the numeric pain rating scale to demonstrate improvement in quality of life and increased functional capacity. (MET) 2. Patient will improve L rhomboid and Lower trap strength upon manual muscle testing to 4/5 facilitate increased spinal stabilization, cervical support and improved functional capabilities. 3. Patient will demonstrate a reduction in trigger point sensitivity to Grade 2 with manual palpation to improve comfort during activity and soft tissue mobility. 4. Patient will improve cervical ROM by 5 degrees without pain into right LF, Rot Rot and Cervical extension to demonstrate improved movement patterns with functional mobility and ADLs. (MET) 5. Pt will improve performance on the deep cervical neck flexor endurance test to 15 seconds without pain to demonstrate improved postural control and decreased neck pain with prolonged sitting. 6. Pt will demonstrate HEP compliance by completing prescribed HEP 4-5x/week. 7. Pt will improve NDI score to 4 to demonstrate improvement functional capabilities and improved QOL. PT Weight Inspector Patient In 6 weeks: Goals 1. Patient will report a 48 hour average pain of 2-3/10 on the numeric pain rating scale to demonstrate improvement in quality of life and increased functional capacity. 2. Patient will improve L rhomboid and Lower trap strength upon manual muscle testing to 4+/5 facilitate increased spinal stabilization and improved functional capabilities. 3. Patient will demonstrate a reduction in trigger point sensitivity to Grade 0-1 with manual palpation to improve comfort during activity and soft tissue mobility. 4. Patient will improve cervical ROM by 10-15 degrees, without pain, into R LF, R Rot and R extension to demonstrate improved movement patterns with functional mobility and ADLs. 5. Pt will improve performance on the deep cervical neck flexor endurance test to 30 seconds without pain to demonstrate improved postural control and decreased neck pain with prolonged sitting. 6. Pt will demonstrate symmetrical and pain-free movement during the Flexion Rotation Test in order to demonstrate improved A-A mobility to assist with ADLs, such as driving. 7. Pt will improve NDI score to 2 to demonstrate improvement functional capabilities and improved QOL. Plan Plan Continued pt treatment may include any or all of the following interventions in order to improve functional outcomes and aid pt improvement in QOL: Frequency of Therapy 2 x/wk Duration of Therapy 6 wks Therapeutic Exercise Yes Including Home Exercise Program Manual Therapy Yes Techniques Neuromuscular Re- Yes education Therapeutic Yes Activities to Return to Previous Functional/Work Level ADL/Self Care Yes Education Thermal Modalities Yes Electrical Yes Stimulation Eval/Re-Eval Yes Time and Billing Re-Eval Time 16 Re-Eval Billing 0 Units Charge for PT No reassessment? PHYSICIAN CERTIFICATION: I certify the specified therapy services for Elo Harrison are required, authorized, and reviewed every 30 days.
== END 2025-03-17 23:59 | disposition home or self-care (01) ==
LOC: PT 16:00
PROVIDERS: PCP Nurse Practitioner Family; Visit Provider Nurse Practitioner Family
DX: M54.2 Cervicalgia (principal); M25.512 Pain in left shoulder
CPT/HCPCS: 97110